=== PATIENT | female | born 1945 | race Caucasian/White ===

== ENCOUNTER 2018-04-05 13:55 | Inpatient (IN) | payer OTHER ==
[~2018-04-05] VITALS: Ht 172.7 cm; Wt 78.0 kg
[~2018-04-05 13:55] MED LIST: AMLO2.5T5 PO; CITA40TA12 PO; HYDR-2765 PO; INSU100C4 SQ; INSU100V13 SQ; POLY17PO28 PO; SENN-22 PO; SIMV20TA3 PO; WARF3TAB54 PO
[2018-04-05] MEDS ORDERED: MORPHINE SULFATE 10 MG/ML VIAL. IM ONE (16:45)
[2018-04-05] MEDS ORDERED: MORPHINE SULFATE 10 MG/ML VIAL. IV ONE (17:00)
[2018-04-05] MEDS ORDERED: VANCOMYCIN PER PHARMACY MC ONE (17:00)
[2018-04-05] MEDS ORDERED: VANCOMYCIN 1.75 GM in IV NORMAL SALINE 500ML BAG 500 ML IV ONE (17:15)
[2018-04-05] MEDS ORDERED: MORPHINE SULFATE 2 MG/ML VIAL. IV PRN (17:15)
[2018-04-05] MEDS ORDERED: ONDANSETRON PF 4 MG/2 ML VIAL. IV PRN ×2 (17:15→18:45)
[2018-04-05] MEDS ORDERED: PIPERACILLIN/TAZOBACTAM 4.5 GM in IV NORMAL SALINE 100ML 100 ML IV ONE (17:15)
[2018-04-05 17:43] LABS: BASO # 0.1 x10^3/uL (0.0-0.2); BASO % 1 % (0-3); EOS # 0.3 x10^3/uL (0.0-0.7); EOS % 5 % (0-3); HEMATOCRIT 28.7 % (36.0-47.0); HEMOGLOBIN 9.4 g/dL (12.0-15.5); LYMPH % 18 % (24-48); MEAN CORPUSCULAR HEMOGLOBIN 29 pg (25-35); MEAN CORPUSCULAR HGB CONC 33 g/dL (31-37); MEAN CORPUSCULAR VOLUME 90 fL (79-100); MONO # 0.5 x10^3/uL (0.0-1.1); MONO % 8 % (0-9); NEUT # 3.9 x10^3uL (1.8-7.7); NEUT % 68 % (31-73); PLATELET COUNT 244 x10^3/uL (140-400); RED CELL DISTRIBUTION WIDTH 12.8 % (11.5-14.5); WHITE BLOOD COUNT 5.7 x10^3/uL (4.0-11.0)
[2018-04-05] MEDS: IV NORMAL SALINE 1000ML BAG 1,000 ML IV SCH ×2 (17:47→18:10)
[2018-04-05 17:50] LABS: CALCIUM 9.4 mg/dL (8.5-10.1); CREATININE 1.3 mg/dL (0.6-1.0); GFR 40.4; POTASSIUM 4.5 mmol/L (3.5-5.1)
[2018-04-05 17:57] LABS: ALBUMIN 3.3 g/dL (3.4-5.0); ALBUMIN/GLOBULIN RATIO 0.8 (1.0-1.7); TOTAL BILIRUBIN 0.5 mg/dL (0.2-1.0); TOTAL PROTEIN 7.6 g/dL (6.4-8.2)
--- NOTE | 2018-04-05 18:43 | PHYS DOC ---
Past Medical History Past Medical History: Diabetes-Type II, High Cholesterol, Hypertension Past Surgical History: Hip Replacement, Other Additional Past Surgical Histo: L. MASTECTOMY, LEFT WRIST 03/2018 Alcohol Use: None Drug Use: None Adult General Chief Complaint Chief Complaint: WOUND CHECK HPI HPI Patient is a 72 year old female with a history of diabetes type 2, hypertension , high cholesterol, who presents to the ED today for evaluation of left wrist infection. Patient states she had open reduction with external fixation on the left wrist done on March 15, [address] Woo, she states she was discharged to a long term. She states she's noted the laceration site has increasingly gotten wider/more open and more red. Patient denies any drainage from the area. She states she is already on cephalexin. Review of Systems Review of Systems Constitutional: Denies fever or chills [] Musculoskeletal: Reports left wrist infection Integument: Denies rash or skin lesions [] Neurologic: Denies headache, focal weakness or sensory changes [] All other systems were reviewed and found to be within normal limits, except as documented in this note. Allergies Allergies Allergies Coded Allergies Type Severity Reaction Last Updated Verified latex Allergy Intermediate 03/17/18 Yes Physical Exam Physical Exam Constitutional: Well developed, well nourished, no acute distress, non-toxic appearance. [] Back: No tenderness, no CVA tenderness. [] Extremities: Left hand/wrist with an open surgical wound, there is external fixator on the surgical wound. There is moderate cellulitis around the wound. There is no drainage from the wound. Patient has full range of motion to the left fingers. +2 left radial pulse. Adequate radial, medial, ulnar sensation to the left hand. Neurologic: Alert and oriented X 3, normal motor function, normal sensory function, no focal deficits noted. [] Psychologic: Affect normal, judgement normal, mood normal. [] Current Patient Data Vital Signs Vital Signs Date Time Temp Pulse Resp B/P (MAP) Pulse Ox O2 Delivery O2 Flow Rate FiO2 04/05/18 16:00 80 16 151/82 (105) 99 Room Air 04/05/18 14:20 97.6 97.6 EKG EKG [] Radiology/Procedures Radiology/Procedures [] Course & Med Decision Making Course & Med Decision Making Pertinent Labs and Imaging studies reviewed. (See chart for details) This is a 72-year-old female patient presenting to the ED today with with left hand/wrist infection. She had open reduction with external fixator on the left hand/wrist done by Dr. Woo on March 15, 2018. She has been on cephalexin, has been in the long term, she states the wound has gotten bigger. Spoke with Dr. Woo who requested we admit patient for IV antibiotics. Spoke with Dr. Clemons who accepted patient for admission. Dragon Disclaimer Dragon Disclaimer This electronic medical record was generated, in whole or in part, using a voice recognition dictation system. Departure Departure Impression: Primary Impression: Infected surgical wound Disposition: ADMITTED INPATIENT Condition: STABLE Referrals: VIVEK WOO MD (PCP) LILIYA MANNING APRN Apr 05, 2018 18:43
[2018-04-05] MEDS ORDERED: MORPHINE SULFATE 4 MG/ML VIAL. IV PRN (18:45)
[2018-04-05 20:10] VITALS: BP 137/66
--- NOTE | 2018-04-05 20:10 | NUR ---
Admission: The patient, ESTEFANÍA HERNANDEZ, 72 y/o, F admitted by LINDA SOLITARIO MD, was given written information regarding hospital policies, unit procedures and contact persons. Patient was transported from ED via bed and head to toe assessment was performed at that time, VSS and patient was afebrile. Orders were received and implemented at that time. Valuables were checked and left with patient in the room.
--- NOTE | 2018-04-05 22:10 | NUR ---
RN paged Dr. Clemons in regards to patients glucose of 199 and to see if home meds could be restarted. Orders were received and implemented at that time. RN will continue to monitor.
[2018-04-05] MEDS ORDERED: HYDROcodone/APAP 7.5/325MG 1 TAB TABLET PO PRN (22:15)
[2018-04-05] MEDS ORDERED: INSULIN GLARGINE 300 UNITS/3 ML INSULN.PEN. SQ SCH (22:30)
[2018-04-05 23:00] VITALS: BP 136/62
--- NOTE | 2018-04-05 23:00 | NUR ---
Patient stated that she has been receiving 25 units of Levemir at night, RN administered 25 units of lantus. RN will continue to monitor.
[2018-04-05] MEDS: SIMVASTATIN 20 MG TABLET PO SCH (23:14)
[2018-04-05] MEDS: CITALOPRAM 20 MG TABLET. PO SCH (23:14)
[2018-04-06] MEDS ORDERED: SENNOSIDES/DOCUSATE 8.6/50MG TABLET. PO PRN (02:45)
[2018-04-06 03:00] VITALS: BP 130/60
[2018-04-06 04:50] LABS: BASO % 1 % (0-3); EOS # 0.2 x10^3/uL (0.0-0.7); EOS % 6 % (0-3); HEMATOCRIT 23.6 % (36.0-47.0); HEMOGLOBIN 7.8 g/dL (12.0-15.5); LYMPH # 0.9 x10^3/uL (1.0-4.8); LYMPH % 23 % (24-48); MEAN CORPUSCULAR HEMOGLOBIN 30 pg (25-35); MEAN CORPUSCULAR HGB CONC 33 g/dL (31-37); MEAN CORPUSCULAR VOLUME 90 fL (79-100); MONO # 0.4 x10^3/uL (0.0-1.1); MONO % 11 % (0-9); NEUT # 2.3 x10^3uL (1.8-7.7); NEUT % 59 % (31-73); PLATELET COUNT 187 x10^3/uL (140-400); RED BLOOD COUNT 2.63 x10^6/uL (3.50-5.40); RED CELL DISTRIBUTION WIDTH 13.2 % (11.5-14.5); WHITE BLOOD COUNT 3.8 x10^3/uL (4.0-11.0)
[2018-04-06 05:06] LABS: PROTHROMBIN TIME PATIENT 14.8 SEC (11.7-14.0)
[2018-04-06 05:15] LABS: ALBUMIN 2.4 g/dL (3.4-5.0); ALBUMIN/GLOBULIN RATIO 0.7 (1.0-1.7); CALCIUM 8.6 mg/dL (8.5-10.1); GFR 54.7; POTASSIUM 4.2 mmol/L (3.5-5.1); TOTAL BILIRUBIN 0.4 mg/dL (0.2-1.0); TOTAL PROTEIN 5.7 g/dL (6.4-8.2)
[2018-04-06 07:00] VITALS: BP 123/48
[2018-04-06] MEDS: glyBURIDE 5 MG TABLET PO SCH ×3 (08:00→16:55)
[2018-04-06] MEDS: INSULIN LISPRO 300 UNITS/3 ML INSULN.PEN. SQ SCH ×6 (08:00→17:11)
[2018-04-06] MEDS ORDERED: DEXTROSE 50% 25 GM / 50ML DISP.SYRIN. IV PRN (09:00)
[2018-04-06] MEDS ORDERED: CEPHALEXIN 250 MG CAPSULE. PO SCH (09:00)
[2018-04-06] MEDS: SENNOSIDES/DOCUSATE 8.6/50MG TABLET. PO SCH (09:00)
[2018-04-06] MEDS ORDERED: POLYETHYLENE GLYCOL 3350 17 GM PACKET. PO PRN (09:00)
[2018-04-06] MEDS: POLYETHYLENE GLYCOL 3350 17 GM PACKET. PO SCH (09:00)
--- NOTE | 2018-04-06 09:03 | PDOC1 ---
History and Physical Date of Admission Date of Admission DATE: 04/06/18 TIME: 08:55 Source Source: Chart review, Patient History of Present Illness History of Present Illness Ms. Jain, is a 72 year old female admit from the ED last night, for evaluation of left wrist infection. Patient states she had open reduction with external fixation on the left wrist done on March 15, [address] Woo, he had some compromise to the hardware last week, and tried to adjust, and started on Keflex, but the area is now more red, swollen and with some exudate. She has been in SNU for hip and wrist pain s/p fall and hip fx. she states the wound had enlarged and is more painful and red Past Medical History Cardiovascular: No pertinent hx Endocrine: Diabetes Past Surgical History Past Surgical History: No pertinent history Family History Family History: Diabetes, Heart Disease, Other Social History Smoke: No ALCOHOL: rare Drugs: None Current Problem List Problem List Problems Medical Problems: (1) Infected surgical wound Status: Acute Current Medications Current Medications Current Medications Morphine Sulfate (Morphine Sulfate) 5 mg 1X ONCE IM ; Start 04/05/18 at 16:45; Stop 04/05/18 at 16:46; Status Cancel Sodium Chloride 1,000 ml @ 1,920 mls/hr Q32M IV Last administered on at 18:10; Start 04/05/18 at 17:15; Stop 04/05/18 at 18:15; Status DC Piperacillin Sod/ Tazobactam Sod 4.5 gm/Sodium Chloride 100 ml @ 200 mls/hr 1X ONCE IV Last administered on 04/05/18at 18:18; Start 04/05/18 at 17:15; Stop 04/05/18 at 17:44; Status DC Vancomycin HCl (Vanco Per Pharmacy) 1 each 1X ONCE MC ; Start 04/05/18 at 17:00 ; Stop 04/05/18 at 17:06; Status DC Morphine Sulfate (Morphine Sulfate) 5 mg 1X ONCE IV Last administered on at 18:12; Start 04/05/18 at 17:00; Stop 04/05/18 at 17:05; Status DC Vancomycin HCl 1.75 gm/Sodium Chloride 500 ml @ 250 mls/hr 1X ONCE IV Last administered on 04/05/18at 19:01; Start 04/05/18 at 17:15; Stop 04/05/18 at 19:14 ; Status DC Ondansetron HCl (Zofran) 4 mg PRN Q8HRS PRN IV NAUSEA/VOMITING Last administered on 04/05/18at 18:11; Start 04/05/18 at 17:15; Stop 04/05/18 at 18:49 ; Status DC Morphine Sulfate (Morphine Sulfate) 2 mg PRN Q2HR PRN IV PAIN; Start 04/05/18 at 17:15; Stop 04/05/18 at 18:49; Status DC Ondansetron HCl (Zofran) 4 mg PRN Q8HRS PRN IV NAUSEA/VOMITING; Start 04/05/18 at 18:45; Stop 04/06/18 at 18:44 Morphine Sulfate (Morphine Sulfate) 4 mg PRN Q2HR PRN IV PAIN Last administered on 04/05/18at 23:25; Start 04/05/18 at 18:45; Stop 04/06/18 at 18:44 Acetaminophen/ Hydrocodone Bitart (Lortab 7.5/325) 1 tab PRN Q4HRS PRN PO PAIN MODERATE TO SEVERE Last administered on 04/06/18at 00:29; Start 04/05/18 at 22:15 ; Stop 04/06/18 at 02:41; Status DC Senna/Docusate Sodium (Senna Plus) 1 tab DAILY PO ; Start 04/06/18 at 09:00 Amlodipine Besylate (Norvasc) 2.5 mg DAILY PO ; Start 04/06/18 at 09:00 Citalopram Hydrobromide (CeleXA) 40 mg QHS PO Last administered on 04/05/18at 23 :14; Start 04/05/18 at 22:30 Insulin Human Lispro (HumaLOG) 10 units TIDWMEALS SQ ; Start 04/06/18 at 08:00 Insulin Glargine (Lantus) 33 units QHS SQ Last administered on 04/05/18at 23:25 ; Start 04/05/18 at 22:30; Stop 04/06/18 at 02:41; Status DC Polyethylene Glycol (miraLAX PACKET) 17 gm PRN DAILY PRN PO CONSTIPATION 1ST CHOICE; Start 04/06/18 at 09:00 Simvastatin (Zocor) 20 mg HS PO Last administered on 04/05/18at 23:14; Start at 22:30 Non-Formulary Medication (Warfarin Sodium (Coumadin)) 3 mg 1X WARF PO ; Start 04/06/18 at 16:00; Status UNV Warfarin Sodium (Coumadin Per Physician) 1 each PRN DAILY PRN MC SEE COMMENTS Last administered on 04/06/18at 05:33; Start 04/05/18 at 22:30 Insulin Glargine (Lantus) 15 units QHS SQ ; Start 04/06/18 at 21:00 Cephalexin HCl (Keflex) 250 mg TID PO ; Start 04/06/18 at 09:00 Cyclobenzaprine HCl (Flexeril) 10 mg PRN Q8HRS PRN PO MUSCLE SPASMS; Start 04/06 at 02:45 Glyburide (Diabeta) 5 mg BIDWMEALS PO ; Start 04/06/18 at 08:00 Polyethylene Glycol (miraLAX PACKET) 17 gm DAILY PO ; Start 04/06/18 at 09:00 Oxycodone HCl (Roxicodone) 15 mg PRN Q3HRS PRN PO SEVERE PAIN; Start 04/06/18 at 02:45 Senna/Docusate Sodium (Senna Plus) 2 tab PRN QHS PRN PO CONSTIPATION 2ND CHOICE ; Start 04/06/18 at 02:45 Lactobacillus Rhamnosus (Culturelle) 1 cap BID PO ; Start 04/06/18 at 09:00 Warfarin Sodium (Coumadin) 3 mg DAILY16 PO ; Start 04/06/18 at 16:00 Active Scripts Active Senna-Time S Tablet (Sennosides/Docusate Sodium) 1 Each Tablet 1 Tab PO DAILY 10 Days Polyethylene Glycol 3350 17 Gm Powd.pack 17 Gm PO PRN DAILY PRN 10 Days Hydrocodone-Apap 7.5-325 (Hydrocodone Bit/Acetaminophen) 1 Tab Tablet 1 Tab PO PRN Q4HRS PRN 14 Days Coumadin (Warfarin Sodium) 3 Mg Tablet 3 Mg PO 1X WARF 10 Days Reported Levemir (Insulin Detemir) 100 Unit/1 Ml Vial 33 Unit SQ HS Novolog (Insulin Aspart) 100 Unit/1 Ml Cartridge 10 Unit SQ TIDWMEALS Amlodipine Besylate 2.5 Mg Tablet 2.5 Mg PO DAILY Celexa (Citalopram Hydrobromide) 40 Mg Tablet 1 Tab PO HS Simvastatin 20 Mg Tablet 1 Tab PO QHS Allergies Allergies: Coded Allergies: latex (Verified Allergy, Intermediate, 03/17/18) ROS General: No: Chills, Night Sweats, Fatigue, Malaise, Appetite, Other PSYCHOLOGICAL ROS: No: Anxiety, Behavioral Disorder, Concentration difficultie , Decreased libido, Depression, Disorientation, Hallucinations, Hostility, Irritablity, Memory difficulties, Mood Swings, Obsessive thoughts, Physical abuse, Sexual abuse, Sleep disturbances, Suicidal ideation, Other Eyes: No Blurry vision, No Decreased vision, No Double vision, No Dry eyes, No Excessive tearing, No Eye Pain, No Itchy Eyes, No Loss of vision, No Photophobia , No Scotomata, No Uses contacts, No Uses glasses, No Other HEENT: No: Heacaches, Visual Changes, Hearing change, Nasal congestion, Nasal discharge, Oral lesions, Sinus pain, Sore Throat, Epistaxis, Sneezing, Snoring, Tinnitus, Vertigo, Vocal changes, Other Respiratory: No: Cough, Hemoptysis, Orthopnea, Pleuritic Pain, Shortness of breath, SOB with excertion, Sputum Changes, Stridor, Tachypnea, Wheezing, Other Cardiovascular: No Chest Pain, No Palpitations, No Orthopnea, No Paroxysmal Noc. Dyspnea, No Edema, No Lt Headedness, No Other Gastrointestinal: No Nausea, No Vomiting, No Abdominal Pain, No Diarrhea, No Constipation, No Melena, No Hematochezia, No Other Genitourinary: No Dysuria, No Frequency, No Incontinence, No Hematuria, No Retention, No Discharge, No Urgency, No Pain, No Flank Pain, No Other, No , No , No , No , No , No , No Musculoskeletal: Yes Gait Disturbance, Yes Joint Pain, Yes Joint Stiffness, Yes Joint Swelling Neurological: Yes Gait Disturbance; No Behavorial Changes, No Bowel/Bladder ControlChng, No Confusion, No Dizziness, No Headaches, No Impaired Coord/balance, No Memory Loss, No Numbness/ Tingling, No Seizures, No Speech Problems, No Tremors, No Visual Changes, No Weakness, No Other Skin: No Dry Skin, No Eczema, No Hair Changes, No Lumps, No Mole Changes, No Mottling, No Nail Changes, No Pruritus, No Rash, No Skin Lesion Changes, No Other, No Acne Physical Exam General: Alert, Cooperative, No acute distress Abdomen: Normal bowel sounds, Soft Rectal Exam: not examined Extremities: No cyanosis, Other (left hand open wound with hardward visualized and exudate, ) Skin: No rashes Neuro: Normal gait, Normal tone Vitals Vitals Vital Signs Date Time Temp Pulse Resp B/P (MAP) Pulse Ox O2 Delivery O2 Flow Rate FiO2 04/06/18 07:20 Room Air 04/06/18 03:00 97.8 83 18 130/60 (83) 91 97.8 Labs Labs Laboratory Tests Test 04/05/18 17:25 04/05/18 20:30 04/05/18 22:00 04/05/18 23:22 White Blood Count 5.7 x10^3/uL (4.0-11.0) Red Blood Count 3.20 x10^6/uL (3.50-5.40) Hemoglobin 9.4 g/dL (12.0-15.5) Hematocrit 28.7 % (36.0-47.0) Mean Corpuscular Volume 90 fL (79-100) Mean Corpuscular Hemoglobin 29 pg (25-35) Mean Corpuscular Hemoglobin Concent 33 g/dL (31-37) Red Cell Distribution Width 12.8 % (11.5-14.5) Platelet Count 244 x10^3/uL (140-400) Neutrophils (%) (Auto) 68 % (31-73) Lymphocytes (%) (Auto) 18 % (24-48) Monocytes (%) (Auto) 8 % (0-9) Eosinophils (%) (Auto) 5 % (0-3) Basophils (%) (Auto) 1 % (0-3) Neutrophils # (Auto) 3.9 x10^3uL (1.8-7.7) Lymphocytes # (Auto) 1.0 x10^3/uL (1.0-4.8) Monocytes # (Auto) 0.5 x10^3/uL (0.0-1.1) Eosinophils # (Auto) 0.3 x10^3/uL (0.0-0.7) Basophils # (Auto) 0.1 x10^3/uL (0.0-0.2) Sodium Level 136 mmol/L (136-145) Potassium Level 4.5 mmol/L (3.5-5.1) Chloride Level 97 mmol/L (98-107) Carbon Dioxide Level 30 mmol/L (21-32) Anion Gap 9 (6-14) Blood Urea Nitrogen 25 mg/dL (7-20) Creatinine 1.3 mg/dL (0.6-1.0) Estimated GFR (Cockcroft-Gault) 40.4 BUN/Creatinine Ratio 19 (6-20) Glucose Level 282 mg/dL (70-99) Lactic Acid Level 1.1 mmol/L (0.4-2.0) 0.7 mmol/L (0.4-2.0) Calcium Level 9.4 mg/dL (8.5-10.1) Total Bilirubin 0.5 mg/dL (0.2-1.0) Aspartate Amino Transf (AST/SGOT) 17 U/L (15-37) Alanine Aminotransferase (ALT/SGPT) 16 U/L (14-59) Alkaline Phosphatase 161 U/L (46-116) Total Protein 7.6 g/dL (6.4-8.2) Albumin 3.3 g/dL (3.4-5.0) Albumin/Globulin Ratio 0.8 (1.0-1.7) Procalcitonin < 0.10 ng/mL (0.00-0.10) Glucose (Fingerstick) 199 mg/dL (70-99) 312 mg/dL (70-99) Test 04/06/18 04:10 White Blood Count 3.8 x10^3/uL (4.0-11.0) Red Blood Count 2.63 x10^6/uL (3.50-5.40) Hemoglobin 7.8 g/dL (12.0-15.5) Hematocrit 23.6 % (36.0-47.0) Mean Corpuscular Volume 90 fL (79-100) Mean Corpuscular Hemoglobin 30 pg (25-35) Mean Corpuscular Hemoglobin Concent 33 g/dL (31-37) Red Cell Distribution Width 13.2 % (11.5-14.5) Platelet Count 187 x10^3/uL (140-400) Neutrophils (%) (Auto) 59 % (31-73) Lymphocytes (%) (Auto) 23 % (24-48) Monocytes (%) (Auto) 11 % (0-9) Eosinophils (%) (Auto) 6 % (0-3) Basophils (%) (Auto) 1 % (0-3) Neutrophils # (Auto) 2.3 x10^3uL (1.8-7.7) Lymphocytes # (Auto) 0.9 x10^3/uL (1.0-4.8) Monocytes # (Auto) 0.4 x10^3/uL (0.0-1.1) Eosinophils # (Auto) 0.2 x10^3/uL (0.0-0.7) Basophils # (Auto) 0.0 x10^3/uL (0.0-0.2) Prothrombin Time 14.8 SEC (11.7-14.0) Prothromb Time International Ratio 1.2 (0.8-1.1) Sodium Level 142 mmol/L (136-145) Potassium Level 4.2 mmol/L (3.5-5.1) Chloride Level 105 mmol/L (98-107) Carbon Dioxide Level 30 mmol/L (21-32) Anion Gap 7 (6-14) Blood Urea Nitrogen 20 mg/dL (7-20) Creatinine 1.0 mg/dL (0.6-1.0) Estimated GFR (Cockcroft-Gault) 54.7 BUN/Creatinine Ratio 20 (6-20) Glucose Level 196 mg/dL (70-99) Calcium Level 8.6 mg/dL (8.5-10.1) Total Bilirubin 0.4 mg/dL (0.2-1.0) Aspartate Amino Transf (AST/SGOT) 13 U/L (15-37) Alanine Aminotransferase (ALT/SGPT) 11 U/L (14-59) Alkaline Phosphatase 118 U/L (46-116) Total Protein 5.7 g/dL (6.4-8.2) Albumin 2.4 g/dL (3.4-5.0) Albumin/Globulin Ratio 0.7 (1.0-1.7) Laboratory Tests Test 04/05/18 17:25 04/05/18 20:30 04/05/18 22:00 04/05/18 23:22 White Blood Count 5.7 x10^3/uL (4.0-11.0) Red Blood Count 3.20 x10^6/uL (3.50-5.40) Hemoglobin 9.4 g/dL (12.0-15.5) Hematocrit 28.7 % (36.0-47.0) Mean Corpuscular Volume 90 fL (79-100) Mean Corpuscular Hemoglobin 29 pg (25-35) Mean Corpuscular Hemoglobin Concent 33 g/dL (31-37) Red Cell Distribution Width 12.8 % (11.5-14.5) Platelet Count 244 x10^3/uL (140-400) Neutrophils (%) (Auto) 68 % (31-73) Lymphocytes (%) (Auto) 18 % (24-48) Monocytes (%) (Auto) 8 % (0-9) Eosinophils (%) (Auto) 5 % (0-3) Basophils (%) (Auto) 1 % (0-3) Neutrophils # (Auto) 3.9 x10^3uL (1.8-7.7) Lymphocytes # (Auto) 1.0 x10^3/uL (1.0-4.8) Monocytes # (Auto) 0.5 x10^3/uL (0.0-1.1) Eosinophils # (Auto) 0.3 x10^3/uL (0.0-0.7) Basophils # (Auto) 0.1 x10^3/uL (0.0-0.2) Sodium Level 136 mmol/L (136-145) Potassium Level 4.5 mmol/L (3.5-5.1) Chloride Level 97 mmol/L (98-107) Carbon Dioxide Level 30 mmol/L (21-32) Anion Gap 9 (6-14) Blood Urea Nitrogen 25 mg/dL (7-20) Creatinine 1.3 mg/dL (0.6-1.0) Estimated GFR (Cockcroft-Gault) 40.4 BUN/Creatinine Ratio 19 (6-20) Glucose Level 282 mg/dL (70-99) Lactic Acid Level 1.1 mmol/L (0.4-2.0) 0.7 mmol/L (0.4-2.0) Calcium Level 9.4 mg/dL (8.5-10.1) Total Bilirubin 0.5 mg/dL (0.2-1.0) Aspartate Amino Transf (AST/SGOT) 17 U/L (15-37) Alanine Aminotransferase (ALT/SGPT) 16 U/L (14-59) Alkaline Phosphatase 161 U/L (46-116) Total Protein 7.6 g/dL (6.4-8.2) Albumin 3.3 g/dL (3.4-5.0) Albumin/Globulin Ratio 0.8 (1.0-1.7) Procalcitonin < 0.10 ng/mL (0.00-0.10) Glucose (Fingerstick) 199 mg/dL (70-99) 312 mg/dL (70-99) Test 04/06/18 04:10 White Blood Count 3.8 x10^3/uL (4.0-11.0) Red Blood Count 2.63 x10^6/uL (3.50-5.40) Hemoglobin 7.8 g/dL (12.0-15.5) Hematocrit 23.6 % (36.0-47.0) Mean Corpuscular Volume 90 fL (79-100) Mean Corpuscular Hemoglobin 30 pg (25-35) Mean Corpuscular Hemoglobin Concent 33 g/dL (31-37) Red Cell Distribution Width 13.2 % (11.5-14.5) Platelet Count 187 x10^3/uL (140-400) Neutrophils (%) (Auto) 59 % (31-73) Lymphocytes (%) (Auto) 23 % (24-48) Monocytes (%) (Auto) 11 % (0-9) Eosinophils (%) (Auto) 6 % (0-3) Basophils (%) (Auto) 1 % (0-3) Neutrophils # (Auto) 2.3 x10^3uL (1.8-7.7) Lymphocytes # (Auto) 0.9 x10^3/uL (1.0-4.8) Monocytes # (Auto) 0.4 x10^3/uL (0.0-1.1) Eosinophils # (Auto) 0.2 x10^3/uL (0.0-0.7) Basophils # (Auto) 0.0 x10^3/uL (0.0-0.2) Prothrombin Time 14.8 SEC (11.7-14.0) Prothromb Time International Ratio 1.2 (0.8-1.1) Sodium Level 142 mmol/L (136-145) Potassium Level 4.2 mmol/L (3.5-5.1) Chloride Level 105 mmol/L (98-107) Carbon Dioxide Level 30 mmol/L (21-32) Anion Gap 7 (6-14) Blood Urea Nitrogen 20 mg/dL (7-20) Creatinine 1.0 mg/dL (0.6-1.0) Estimated GFR (Cockcroft-Gault) 54.7 BUN/Creatinine Ratio 20 (6-20) Glucose Level 196 mg/dL (70-99) Calcium Level 8.6 mg/dL (8.5-10.1) Total Bilirubin 0.4 mg/dL (0.2-1.0) Aspartate Amino Transf (AST/SGOT) 13 U/L (15-37) Alanine Aminotransferase (ALT/SGPT) 11 U/L (14-59) Alkaline Phosphatase 118 U/L (46-116) Total Protein 5.7 g/dL (6.4-8.2) Albumin 2.4 g/dL (3.4-5.0) Albumin/Globulin Ratio 0.7 (1.0-1.7) VTE Prophylaxis Ordered VTE Prophylaxis Devices: Yes VTE Pharmacological Prophylaxi: Yes Assessment/Plan Assessment/Plan left hand fracture with ORIF and hardware, now left hand swelling and redness and pain with exudate. cellulitis, consult Ortho s/p surg 03/15, DM2, insulin, add SSI, check a1c hip pain, recent hip fracture from falling on ice in driveway while retrieving garbage EBENEZER Betancourt MD Apr 06, 2018 09:03
--- NOTE | 2018-04-06 09:49 | PDOC ---
Infectious Disease Note Vital Sign Vital Signs Vital Signs Date Time Temp Pulse Resp B/P (MAP) Pulse Ox O2 Delivery O2 Flow Rate FiO2 04/06/18 07:20 Room Air 04/06/18 03:00 97.8 83 18 130/60 (83) 91 97.8 Labs Lab Laboratory Tests Test 04/05/18 17:25 04/05/18 20:30 04/05/18 22:00 04/05/18 23:22 White Blood Count 5.7 x10^3/uL (4.0-11.0) Red Blood Count 3.20 x10^6/uL (3.50-5.40) Hemoglobin 9.4 g/dL (12.0-15.5) Hematocrit 28.7 % (36.0-47.0) Mean Corpuscular Volume 90 fL (79-100) Mean Corpuscular Hemoglobin 29 pg (25-35) Mean Corpuscular Hemoglobin Concent 33 g/dL (31-37) Red Cell Distribution Width 12.8 % (11.5-14.5) Platelet Count 244 x10^3/uL (140-400) Neutrophils (%) (Auto) 68 % (31-73) Lymphocytes (%) (Auto) 18 % (24-48) Monocytes (%) (Auto) 8 % (0-9) Eosinophils (%) (Auto) 5 % (0-3) Basophils (%) (Auto) 1 % (0-3) Neutrophils # (Auto) 3.9 x10^3uL (1.8-7.7) Lymphocytes # (Auto) 1.0 x10^3/uL (1.0-4.8) Monocytes # (Auto) 0.5 x10^3/uL (0.0-1.1) Eosinophils # (Auto) 0.3 x10^3/uL (0.0-0.7) Basophils # (Auto) 0.1 x10^3/uL (0.0-0.2) Sodium Level 136 mmol/L (136-145) Potassium Level 4.5 mmol/L (3.5-5.1) Chloride Level 97 mmol/L (98-107) Carbon Dioxide Level 30 mmol/L (21-32) Anion Gap 9 (6-14) Blood Urea Nitrogen 25 mg/dL (7-20) Creatinine 1.3 mg/dL (0.6-1.0) Estimated GFR (Cockcroft-Gault) 40.4 BUN/Creatinine Ratio 19 (6-20) Glucose Level 282 mg/dL (70-99) Lactic Acid Level 1.1 mmol/L (0.4-2.0) 0.7 mmol/L (0.4-2.0) Calcium Level 9.4 mg/dL (8.5-10.1) Total Bilirubin 0.5 mg/dL (0.2-1.0) Aspartate Amino Transf (AST/SGOT) 17 U/L (15-37) Alanine Aminotransferase (ALT/SGPT) 16 U/L (14-59) Alkaline Phosphatase 161 U/L (46-116) Total Protein 7.6 g/dL (6.4-8.2) Albumin 3.3 g/dL (3.4-5.0) Albumin/Globulin Ratio 0.8 (1.0-1.7) Procalcitonin < 0.10 ng/mL (0.00-0.10) Glucose (Fingerstick) 199 mg/dL (70-99) 312 mg/dL (70-99) Test 04/06/18 04:10 04/06/18 07:56 White Blood Count 3.8 x10^3/uL (4.0-11.0) Red Blood Count 2.63 x10^6/uL (3.50-5.40) Hemoglobin 7.8 g/dL (12.0-15.5) Hematocrit 23.6 % (36.0-47.0) Mean Corpuscular Volume 90 fL (79-100) Mean Corpuscular Hemoglobin 30 pg (25-35) Mean Corpuscular Hemoglobin Concent 33 g/dL (31-37) Red Cell Distribution Width 13.2 % (11.5-14.5) Platelet Count 187 x10^3/uL (140-400) Neutrophils (%) (Auto) 59 % (31-73) Lymphocytes (%) (Auto) 23 % (24-48) Monocytes (%) (Auto) 11 % (0-9) Eosinophils (%) (Auto) 6 % (0-3) Basophils (%) (Auto) 1 % (0-3) Neutrophils # (Auto) 2.3 x10^3uL (1.8-7.7) Lymphocytes # (Auto) 0.9 x10^3/uL (1.0-4.8) Monocytes # (Auto) 0.4 x10^3/uL (0.0-1.1) Eosinophils # (Auto) 0.2 x10^3/uL (0.0-0.7) Basophils # (Auto) 0.0 x10^3/uL (0.0-0.2) Prothrombin Time 14.8 SEC (11.7-14.0) Prothromb Time International Ratio 1.2 (0.8-1.1) Sodium Level 142 mmol/L (136-145) Potassium Level 4.2 mmol/L (3.5-5.1) Chloride Level 105 mmol/L (98-107) Carbon Dioxide Level 30 mmol/L (21-32) Anion Gap 7 (6-14) Blood Urea Nitrogen 20 mg/dL (7-20) Creatinine 1.0 mg/dL (0.6-1.0) Estimated GFR (Cockcroft-Gault) 54.7 BUN/Creatinine Ratio 20 (6-20) Glucose Level 196 mg/dL (70-99) Calcium Level 8.6 mg/dL (8.5-10.1) Total Bilirubin 0.4 mg/dL (0.2-1.0) Aspartate Amino Transf (AST/SGOT) 13 U/L (15-37) Alanine Aminotransferase (ALT/SGPT) 11 U/L (14-59) Alkaline Phosphatase 118 U/L (46-116) Total Protein 5.7 g/dL (6.4-8.2) Albumin 2.4 g/dL (3.4-5.0) Albumin/Globulin Ratio 0.7 (1.0-1.7) Glucose (Fingerstick) 109 mg/dL (70-99) Objective Assessment Left wrist infection Left wrist ORIF on 03/15 Left hip ORIF/Hemiarthroplasty on 03/15 DM Plan Plan of Care robyn and elan culture supportive care d/w MARILYN Russ MD Apr 06, 2018 09:49
[2018-04-06] MEDS: LACTOBACILLUS RHAMNOSUS GG 1 CAPSULE. PO SCH ×2 (10:07→20:53)
[2018-04-06] MEDS: PIPERACILLIN/TAZOBACTAM 3.375 GM in IV NORMAL SALINE 50ML 50 ML IV SCH ×3 (10:09→23:45)
[2018-04-06] MEDS: amLODIPine BESYLATE 5 MG TABLET PO SCH (10:09)
--- NOTE | 2018-04-06 10:23 | NUR ---
COURTNEY following for discharge planning. Discussed with RN, pt had been at [facility] and was supposed to discharge home from SNU in one day. Per RN, pt does not want to go back to skilled, she would like to go home. Dr. Reynolds planning on discharging pt likely on Monday with IV antibiotics. COURTNEY will continue to follow when abx has been determined.
[2018-04-06 11:00] VITALS: BP 129/55
[2018-04-06] MEDS: VANCOMYCIN 1.25 GM in IV NORMAL SALINE 250ML 250 ML IV SCH (12:23)
--- NOTE | 2018-04-06 13:04 | NUR ---
Pharmacy Warfarin Dosing Note S:Pharmacy consulted to assist with anticoagulation therapy started 03/15/18 with target INR: 1.6 - 2.5 O:ESTEFANÍA HERNANDEZ is a 72 year old F with femur fracture, s/p repair 03/15/18 LABS: Last INR: 1.2 Last HGB: 7.8 Last HCT: 23.6 Last PLT: 187 Previous Regimen: 3 mg/day Drug Interaction Changes: New Interacting Drug Ongoing Drug Interactions: Zosyn A:INR of 1.2 is below desired range. Target range for this patient is: 1.6 - 2.5 P: Warfarin dose: 4 mg Today at 1600 Bridge Therapy: None Next INR due 04/07/18 Pharmacy anticoagulation service will continue to follow. JAY LLAMAS [facility], 04/06/18 [id number]
[2018-04-06] MEDS: VANCOMYCIN PER PHARMACY MC PRN (13:11)
--- NOTE | 2018-04-06 13:11 | NUR ---
Pharmacy Vancomycin Dosing Note S:Consulted to monitor and dose vancomycin started 04/05/18. O:ESTEFANÍA HERNANDEZ is a 72 year old F with a post-op wound infection. Height: 5 feet, 8 inches Weight: 78.5 kg Dosing Weight: Actual Other Antibiotics: ZOSYN 3.375G IV Q6HRS LABS: Last BUN: 20 Last Creatinine: 1.0 Creatinine Clearance: 56 mL/min Last WBC: 3.8 Last Procalcitonin: - Tmax (past 24 hours): 98.5 Microbiology: BLOOD AND WOUND CX PENDING I/O: not documented A: Patient requires vancomycin for a post-op wound infection, goal trough 10-20 mcg/ml. Patient's SCr of 1.0 is improved from baseline value; eCrCl is 56 ml/min. She received vancomycin 1750 mg x 1 dose in ER yesterday. Initiate the following: P: 1. Vancomycin 1250 mg IV q18h 2. Follow up Trough level on 04/07/18 at 0630 3. Pharmacy will continue to monitor, follow and adjust therapy as needed. JAY LLAMAS [facility], 04/06/18 [id number]
--- NOTE | 2018-04-06 14:13 | NUR ---
Wound Care Wound care consult for open incision of L wrist with exposed hardware. See wound assessment. Cleansed, pictured and measured wound. Dressed with Aquacel Ag, ABD and Kerlix. Recommend to change every 2-3 days as needed for drainage. L hip incision is well approximated with no drainage and Xeroform and Telfa dressing intact. No other wounds noted with full skin inspection. Pt educated on PU prevention. WC will continue to follow for possible changes.
[2018-04-06] MEDS: oxyCODONE IR 5 MG TABLET PO PRN (14:36)
[2018-04-06 15:00] VITALS: BP 124/67
[2018-04-06] MEDS ORDERED: WARFARIN 4 MG TABLET. PO ONE (16:00)
[2018-04-06] MEDS ORDERED: WARFARIN 3 MG TABLET. PO SCH (16:00)
[2018-04-06] MEDS ORDERED: WARFARIN SODIUM 3 MG PO SCH (16:00)
[2018-04-06] MEDS: MULTIVITAMIN with MINERAL TABLET. PO SCH (16:55)
--- NOTE | 2018-04-06 18:39 | PDOC ---
PROGRESS NOTES Subjective Subjective Problems overnight: Left wrist wound and left hip soreness Objective Vital Signs Vital Signs Date Time Temp Pulse Resp B/P (MAP) Pulse Ox O2 Delivery O2 Flow Rate FiO2 04/06/18 15:52 Room Air 04/06/18 15:00 98.5 85 16 124/67 (86) 99 98.5 Physical Exam On examination left hip wound is well-healing leg lengths are equal distal neurovascular status intact she has some muscular soreness and weakness as expected. Left wrist shows some skin compromise where one of her percutaneous pins had become impacted at her rehabilitation facility and compromised the skin where the protective ball got driven into the skin and caused a skin defect. Wrist is somewhat stiff as expected due to her fracture she can flex and extend her fingers with minimal difficulty Labs Laboratory Tests Test 04/05/18 17:25 04/05/18 20:30 04/05/18 22:00 04/05/18 23:22 White Blood Count 5.7 x10^3/uL (4.0-11.0) Red Blood Count 3.20 x10^6/uL (3.50-5.40) Hemoglobin 9.4 g/dL (12.0-15.5) Hematocrit 28.7 % (36.0-47.0) Mean Corpuscular Volume 90 fL (79-100) Mean Corpuscular Hemoglobin 29 pg (25-35) Mean Corpuscular Hemoglobin Concent 33 g/dL (31-37) Red Cell Distribution Width 12.8 % (11.5-14.5) Platelet Count 244 x10^3/uL (140-400) Neutrophils (%) (Auto) 68 % (31-73) Lymphocytes (%) (Auto) 18 % (24-48) Monocytes (%) (Auto) 8 % (0-9) Eosinophils (%) (Auto) 5 % (0-3) Basophils (%) (Auto) 1 % (0-3) Neutrophils # (Auto) 3.9 x10^3uL (1.8-7.7) Lymphocytes # (Auto) 1.0 x10^3/uL (1.0-4.8) Monocytes # (Auto) 0.5 x10^3/uL (0.0-1.1) Eosinophils # (Auto) 0.3 x10^3/uL (0.0-0.7) Basophils # (Auto) 0.1 x10^3/uL (0.0-0.2) Sodium Level 136 mmol/L (136-145) Potassium Level 4.5 mmol/L (3.5-5.1) Chloride Level 97 mmol/L (98-107) Carbon Dioxide Level 30 mmol/L (21-32) Anion Gap 9 (6-14) Blood Urea Nitrogen 25 mg/dL (7-20) Creatinine 1.3 mg/dL (0.6-1.0) Estimated GFR (Cockcroft-Gault) 40.4 BUN/Creatinine Ratio 19 (6-20) Glucose Level 282 mg/dL (70-99) Lactic Acid Level 1.1 mmol/L (0.4-2.0) 0.7 mmol/L (0.4-2.0) Calcium Level 9.4 mg/dL (8.5-10.1) Total Bilirubin 0.5 mg/dL (0.2-1.0) Aspartate Amino Transf (AST/SGOT) 17 U/L (15-37) Alanine Aminotransferase (ALT/SGPT) 16 U/L (14-59) Alkaline Phosphatase 161 U/L (46-116) Total Protein 7.6 g/dL (6.4-8.2) Albumin 3.3 g/dL (3.4-5.0) Albumin/Globulin Ratio 0.8 (1.0-1.7) Procalcitonin < 0.10 ng/mL (0.00-0.10) Glucose (Fingerstick) 199 mg/dL (70-99) 312 mg/dL (70-99) Test 04/06/18 04:10 04/06/18 07:56 04/06/18 11:55 04/06/18 16:59 White Blood Count 3.8 x10^3/uL (4.0-11.0) Red Blood Count 2.63 x10^6/uL (3.50-5.40) Hemoglobin 7.8 g/dL (12.0-15.5) Hematocrit 23.6 % (36.0-47.0) Mean Corpuscular Volume 90 fL (79-100) Mean Corpuscular Hemoglobin 30 pg (25-35) Mean Corpuscular Hemoglobin Concent 33 g/dL (31-37) Red Cell Distribution Width 13.2 % (11.5-14.5) Platelet Count 187 x10^3/uL (140-400) Neutrophils (%) (Auto) 59 % (31-73) Lymphocytes (%) (Auto) 23 % (24-48) Monocytes (%) (Auto) 11 % (0-9) Eosinophils (%) (Auto) 6 % (0-3) Basophils (%) (Auto) 1 % (0-3) Neutrophils # (Auto) 2.3 x10^3uL (1.8-7.7) Lymphocytes # (Auto) 0.9 x10^3/uL (1.0-4.8) Monocytes # (Auto) 0.4 x10^3/uL (0.0-1.1) Eosinophils # (Auto) 0.2 x10^3/uL (0.0-0.7) Basophils # (Auto) 0.0 x10^3/uL (0.0-0.2) Prothrombin Time 14.8 SEC (11.7-14.0) Prothromb Time International Ratio 1.2 (0.8-1.1) Sodium Level 142 mmol/L (136-145) Potassium Level 4.2 mmol/L (3.5-5.1) Chloride Level 105 mmol/L (98-107) Carbon Dioxide Level 30 mmol/L (21-32) Anion Gap 7 (6-14) Blood Urea Nitrogen 20 mg/dL (7-20) Creatinine 1.0 mg/dL (0.6-1.0) Estimated GFR (Cockcroft-Gault) 54.7 BUN/Creatinine Ratio 20 (6-20) Glucose Level 196 mg/dL (70-99) Calcium Level 8.6 mg/dL (8.5-10.1) Total Bilirubin 0.4 mg/dL (0.2-1.0) Aspartate Amino Transf (AST/SGOT) 13 U/L (15-37) Alanine Aminotransferase (ALT/SGPT) 11 U/L (14-59) Alkaline Phosphatase 118 U/L (46-116) Total Protein 5.7 g/dL (6.4-8.2) Albumin 2.4 g/dL (3.4-5.0) Albumin/Globulin Ratio 0.7 (1.0-1.7) Glucose (Fingerstick) 109 mg/dL (70-99) 118 mg/dL (70-99) 200 mg/dL (70-99) Laboratory Tests Test 04/05/18 20:30 04/05/18 22:00 04/05/18 23:22 04/06/18 04:10 Glucose (Fingerstick) 199 mg/dL (70-99) 312 mg/dL (70-99) Lactic Acid Level 0.7 mmol/L (0.4-2.0) White Blood Count 3.8 x10^3/uL (4.0-11.0) Red Blood Count 2.63 x10^6/uL (3.50-5.40) Hemoglobin 7.8 g/dL (12.0-15.5) Hematocrit 23.6 % (36.0-47.0) Mean Corpuscular Volume 90 fL (79-100) Mean Corpuscular Hemoglobin 30 pg (25-35) Mean Corpuscular Hemoglobin Concent 33 g/dL (31-37) Red Cell Distribution Width 13.2 % (11.5-14.5) Platelet Count 187 x10^3/uL (140-400) Neutrophils (%) (Auto) 59 % (31-73) Lymphocytes (%) (Auto) 23 % (24-48) Monocytes (%) (Auto) 11 % (0-9) Eosinophils (%) (Auto) 6 % (0-3) Basophils (%) (Auto) 1 % (0-3) Neutrophils # (Auto) 2.3 x10^3uL (1.8-7.7) Lymphocytes # (Auto) 0.9 x10^3/uL (1.0-4.8) Monocytes # (Auto) 0.4 x10^3/uL (0.0-1.1) Eosinophils # (Auto) 0.2 x10^3/uL (0.0-0.7) Basophils # (Auto) 0.0 x10^3/uL (0.0-0.2) Prothrombin Time 14.8 SEC (11.7-14.0) Prothromb Time International Ratio 1.2 (0.8-1.1) Sodium Level 142 mmol/L (136-145) Potassium Level 4.2 mmol/L (3.5-5.1) Chloride Level 105 mmol/L (98-107) Carbon Dioxide Level 30 mmol/L (21-32) Anion Gap 7 (6-14) Blood Urea Nitrogen 20 mg/dL (7-20) Creatinine 1.0 mg/dL (0.6-1.0) Estimated GFR (Cockcroft-Gault) 54.7 BUN/Creatinine Ratio 20 (6-20) Glucose Level 196 mg/dL (70-99) Calcium Level 8.6 mg/dL (8.5-10.1) Total Bilirubin 0.4 mg/dL (0.2-1.0) Aspartate Amino Transf (AST/SGOT) 13 U/L (15-37) Alanine Aminotransferase (ALT/SGPT) 11 U/L (14-59) Alkaline Phosphatase 118 U/L (46-116) Total Protein 5.7 g/dL (6.4-8.2) Albumin 2.4 g/dL (3.4-5.0) Albumin/Globulin Ratio 0.7 (1.0-1.7) Test 04/06/18 07:56 04/06/18 11:55 04/06/18 16:59 Glucose (Fingerstick) 109 mg/dL (70-99) 118 mg/dL (70-99) 200 mg/dL (70-99) Assessment Assessment History of left hip fracture treated operatively and closed reduction pinning of her left wrist Plan Plan of Care I had actually seen her last week in clinic due to some complaints of increased wrist pain. At that time one of her percutaneous pins had been somehow driven into her skin and the protective ball to limit the movement of the pin had pushed into the skin and compromise the area. This was redressed at the time dressing changes were done at the facility and she was started on some oral antibiotics. Nevertheless on her presentation to the emergency department the redness of the area was increased despite the wound not becoming larger. Accordingly she was admitted for intravenous antibiotics. At this point I do not judged that operative intervention needs to be instituted as she seems to be responding to the antibiotics. Furthermore removal of the pins would be premature and her only alternative really would be being placed in a cast that would have to be windowed to allow access for wound care. I think at this point the presence as positioned are a better alternative to facilitate stabilization of her healing wrist fracture as well as wound care. She will remain nonweightbearing on the wrist with a platform walker to allow weightbearing on her forearm to facilitate her continued left hip rehabilitation VIVEK CARTER MD Apr 06, 2018 18:39
[2018-04-06 19:00] VITALS: BP 136/62
[2018-04-06] MEDS: CITALOPRAM 20 MG TABLET. PO SCH (20:53)
[2018-04-06] MEDS: SIMVASTATIN 20 MG TABLET PO SCH (20:53)
[2018-04-06] MEDS: INSULIN GLARGINE 300 UNITS/3 ML INSULN.PEN. SQ SCH (21:08)
[2018-04-06 23:00] VITALS: BP 155/66
[2018-04-07] MEDS: oxyCODONE IR 5 MG TABLET PO PRN ×3 (00:48→17:07)
--- NOTE | 2018-04-07 00:52 | CONS ---
DATE OF CONSULTATION: 04/06/2018 REQUESTING PHYSICIAN: Dr. Ybarra. REASON FOR CONSULTATION: Left wrist infection. HISTORY OF PRESENT ILLNESS: This is a 72-year-old female with history of diabetes who has had a fall and had a surgery done on 03/15/2018 with left hip fracture hemiarthroplasty and left wrist fracture pinning done. The patient does have 2 pins at least visible into the wrist and the patient was in the rehabilitation. Evidently, the area started becoming red and has slight drainage and pin got pushed further in, hence her admission. The patient denies any fever. Denies any nausea, vomiting, diarrhea. Denies any chest pain, shortness of breath, abdominal pain, urinary symptoms or bowel symptoms. The patient had been on Keflex for several days now. PAST MEDICAL HISTORY: Positive for diabetes mellitus and has had ankle fracture in the past and now this recent hip fracture after a fall and wrist fracture, which has had ORIF done on 03/15/2018. SOCIAL HISTORY: Negative for smoking, alcohol, or illicit drug use. ALLERGIES: No known drug allergies. CURRENT MEDICATIONS: The patient is on Keflex and one dose of vancomycin and one dose of Zosyn has been given. REVIEW OF SYSTEMS: As per HPI. All other systems reviewed are negative. PHYSICAL EXAMINATION: GENERAL: Alert, oriented female, not in any distress. VITAL SIGNS: Stable, afebrile. HEENT: NAD. NECK: Supple, no JVP, no lymphadenopathy. LUNGS: Clear. HEART: S1, S2 regular. ABDOMEN: Benign. EXTREMITIES: No edema or cyanosis. Left hip incision is unremarkable. Left wrist area has 2 pins visible going into the bone and there is redness in the surrounding area as well as there is very small amount of purulent drainage visible. Culture of that was done by the time I saw the patient with the nurse. NEUROLOGICAL: The patient is neurologically alert, awake and appropriate. No focal neurologic deficit. LABORATORY DATA: White count is 3.8, hemoglobin 7.8, platelets are normal. BUN and creatinine is normal. Lactic acid is normal. Urinalysis unremarkable. IMPRESSION: 1. Left wrist post-surgical infection with the 2 pins visible going into the bone. 2. Left wrist fracture, status post open reduction and internal fixation on 03/15/2018. At the same time, on the left hip, fracture status post open reduction and internal fixation with hemiarthroplasty done on 03/15/2018. 3. Diabetes. RECOMMENDATIONS: Would write down for regular doses of vancomycin and Zosyn, supportive care, cultures. We will follow the cultures and I did discuss with Dr. Woo. Plan is to give IV for some time to control this and hopefully in a week or two that he should be able to take out the pin. Supportive care and we will continue to follow this. Thank you very much, Dr. Ybarra, for giving me the opportunity to participate in this patient's care. MARILYN MOMIN MD DR: DIGNA/anuja JOB#: [id number] / [id number]
--- NOTE | 2018-04-07 01:40 | NUR ---
RN changed the dressing on the site from left hip fracture and repair. RN applied xeroform medicated gauze, gauze pads, and medipore tape. Patient stated that the nursing facility changes the dressing every other day.
[2018-04-07 03:00] VITALS: BP 143/65
[2018-04-07] MEDS: PIPERACILLIN/TAZOBACTAM 3.375 GM in IV NORMAL SALINE 50ML 50 ML IV SCH ×3 (05:55→17:09)
[2018-04-07 06:29] LABS: BASO % 1 % (0-3); EOS # 0.2 x10^3/uL (0.0-0.7); EOS % 5 % (0-3); HEMATOCRIT 25.2 % (36.0-47.0); HEMOGLOBIN 8.5 g/dL (12.0-15.5); LYMPH # 0.9 x10^3/uL (1.0-4.8); LYMPH % 21 % (24-48); MEAN CORPUSCULAR HEMOGLOBIN 30 pg (25-35); MEAN CORPUSCULAR HGB CONC 34 g/dL (31-37); MEAN CORPUSCULAR VOLUME 89 fL (79-100); MONO # 0.4 x10^3/uL (0.0-1.1); MONO % 9 % (0-9); NEUT # 2.9 x10^3uL (1.8-7.7); NEUT % 64 % (31-73); PLATELET COUNT 191 x10^3/uL (140-400); RED BLOOD COUNT 2.83 x10^6/uL (3.50-5.40); RED CELL DISTRIBUTION WIDTH 12.8 % (11.5-14.5); WHITE BLOOD COUNT 4.5 x10^3/uL (4.0-11.0)
[2018-04-07 06:52] LABS: ALBUMIN 2.4 g/dL (3.4-5.0); ALBUMIN/GLOBULIN RATIO 0.8 (1.0-1.7); CALCIUM 8.3 mg/dL (8.5-10.1); GFR 54.7; POTASSIUM 3.5 mmol/L (3.5-5.1); TOTAL BILIRUBIN 0.4 mg/dL (0.2-1.0); TOTAL PROTEIN 5.5 g/dL (6.4-8.2)
[2018-04-07 06:55] LABS: VANC TR 11.4 mcg/mL (10.0-20.0)
--- NOTE | 2018-04-07 06:55 | PDOC ---
Infectious Disease Note Subjective Subjective pt is feeling good, does have left hip pain off and on ROS ROS no n/v/d/fever Vital Sign Vital Signs Vital Signs Date Time Temp Pulse Resp B/P (MAP) Pulse Ox O2 Delivery O2 Flow Rate FiO2 04/07/18 03:00 98.5 78 18 143/65 (91) 97 Room Air 98.5 Physical Exam PHYSICAL EXAM GENERAL: Alert, oriented female, not in any distress. VITAL SIGNS: Stable, afebrile. HEENT: NAD. NECK: Supple, no JVP, no lymphadenopathy. LUNGS: Clear. HEART: S1, S2 regular. ABDOMEN: Benign. EXTREMITIES: No edema or cyanosis. Left hip incision is unremarkable. Left wrist area has 2 pins visible going into the bone and there is redness in the surrounding area as well as there is very small amount of purulent drainage visible. Culture of that was done by the time I saw the patient with the nurse. NEUROLOGICAL: The patient is neurologically alert, awake and appropriate. No focal neurologic deficit. Labs Lab Laboratory Tests Test 04/06/18 07:56 04/06/18 11:55 04/06/18 16:59 04/06/18 21:03 Glucose (Fingerstick) 109 mg/dL (70-99) 118 mg/dL (70-99) 200 mg/dL (70-99) 134 mg/dL (70-99) Test 04/07/18 06:20 White Blood Count 4.5 x10^3/uL (4.0-11.0) Red Blood Count 2.83 x10^6/uL (3.50-5.40) Hemoglobin 8.5 g/dL (12.0-15.5) Hematocrit 25.2 % (36.0-47.0) Mean Corpuscular Volume 89 fL (79-100) Mean Corpuscular Hemoglobin 30 pg (25-35) Mean Corpuscular Hemoglobin Concent 34 g/dL (31-37) Red Cell Distribution Width 12.8 % (11.5-14.5) Platelet Count 191 x10^3/uL (140-400) Neutrophils (%) (Auto) 64 % (31-73) Lymphocytes (%) (Auto) 21 % (24-48) Monocytes (%) (Auto) 9 % (0-9) Eosinophils (%) (Auto) 5 % (0-3) Basophils (%) (Auto) 1 % (0-3) Neutrophils # (Auto) 2.9 x10^3uL (1.8-7.7) Lymphocytes # (Auto) 0.9 x10^3/uL (1.0-4.8) Monocytes # (Auto) 0.4 x10^3/uL (0.0-1.1) Eosinophils # (Auto) 0.2 x10^3/uL (0.0-0.7) Basophils # (Auto) 0.0 x10^3/uL (0.0-0.2) Micro Microbiology 04/06/18 Blood Culture - Preliminary, Resulted NO GROWTH AFTER 1 DAY 04/05/18 Aerobic Culture, Resulted Pending 04/05/18 Aerobic Culture Result 1 ([facility]), Resulted Pending 04/05/18 Gram Stain - Final, Resulted 04/05/18 Gram Stain Result 1 ([facility]) - Final, Resulted 04/05/18 Gram Stain Result 2 ([facility]) - Final, Resulted Objective Assessment Left wrist infection Left wrist ORIF on 03/15 Left hip ORIF/Hemiarthroplasty on 03/15 DM Plan Plan of Care vanc and zosyn check culture supportive care pt/ot MARILYN MOMIN MD Apr 07, 2018 06:54
[2018-04-07 07:00] VITALS: BP 154/67
[2018-04-07] MEDS: INSULIN LISPRO 300 UNITS/3 ML INSULN.PEN. SQ SCH ×6 (08:00→17:00)
[2018-04-07] MEDS: glyBURIDE 5 MG TABLET PO SCH ×2 (08:20→17:06)
[2018-04-07] MEDS: VANCOMYCIN 1.25 GM in IV NORMAL SALINE 250ML 250 ML IV SCH (08:20)
[2018-04-07] MEDS: CYCLOBENZAPRINE 10 MG TABLET. PO PRN ×2 (08:21→17:07)
[2018-04-07] MEDS: SENNOSIDES/DOCUSATE 8.6/50MG TABLET. PO SCH (08:21)
[2018-04-07] MEDS: MULTIVITAMIN with MINERAL TABLET. PO SCH (08:21)
[2018-04-07] MEDS: LACTOBACILLUS RHAMNOSUS GG 1 CAPSULE. PO SCH ×2 (08:21→21:27)
[2018-04-07] MEDS: amLODIPine BESYLATE 5 MG TABLET PO SCH (08:28)
[2018-04-07] MEDS: POLYETHYLENE GLYCOL 3350 17 GM PACKET. PO SCH (08:38)
[2018-04-07 11:00] VITALS: BP 134/58
--- NOTE | 2018-04-07 12:40 | PDOC ---
PROGRESS NOTES Chief Complaint Chief Complaint left hand fracture with ORIF and hardware, now left hand swelling and redness and pain with exudate. cellulitis, c ID following, on broad abx DM2, insulin, con tthe SSI, c hip pain, recent hip fracture from falling on ice in driveway while retrieving garbage cans History of Present Illness History of Present Illness redness and swelling and discharge a little better Vitals Vitals Vital Signs Date Time Temp Pulse Resp B/P (MAP) Pulse Ox O2 Delivery O2 Flow Rate FiO2 04/07/18 11:00 97.7 70 18 134/58 (83) 95 Room Air 97.7 Physical Exam Physical Exam GENERAL: Alert, oriented female, not in any distress. VITAL SIGNS: Stable, afebrile. HEENT: NAD. NECK: Supple, no JVP, no lymphadenopathy. LUNGS: Clear. HEART: S1, S2 regular. ABDOMEN: Benign. EXTREMITIES: No edema or cyanosis. Left hip incision is unremarkable. Left wrist area has 2 pins visible going into the bone and there is redness in the surrounding area as well as there is very small amount of purulent drainage visible. Culture of that was done by the time I saw the patient with the nurse. NEUROLOGICAL: The patient is neurologically alert, awake and appropriate. No focal neurologic deficit. General: Alert, Cooperative, No acute distress Lungs: Clear Abdomen: Normal bowel sounds, Soft Extremities: No cyanosis, Other (left hand open wound with hardward visualized and exudate, ) Skin: No rashes Labs LABS Laboratory Tests Test 04/06/18 16:59 04/06/18 21:03 04/07/18 06:20 04/07/18 07:18 Glucose (Fingerstick) 200 mg/dL (70-99) 134 mg/dL (70-99) 53 mg/dL (70-99) White Blood Count 4.5 x10^3/uL (4.0-11.0) Red Blood Count 2.83 x10^6/uL (3.50-5.40) Hemoglobin 8.5 g/dL (12.0-15.5) Hematocrit 25.2 % (36.0-47.0) Mean Corpuscular Volume 89 fL (79-100) Mean Corpuscular Hemoglobin 30 pg (25-35) Mean Corpuscular Hemoglobin Concent 34 g/dL (31-37) Red Cell Distribution Width 12.8 % (11.5-14.5) Platelet Count 191 x10^3/uL (140-400) Neutrophils (%) (Auto) 64 % (31-73) Lymphocytes (%) (Auto) 21 % (24-48) Monocytes (%) (Auto) 9 % (0-9) Eosinophils (%) (Auto) 5 % (0-3) Basophils (%) (Auto) 1 % (0-3) Neutrophils # (Auto) 2.9 x10^3uL (1.8-7.7) Lymphocytes # (Auto) 0.9 x10^3/uL (1.0-4.8) Monocytes # (Auto) 0.4 x10^3/uL (0.0-1.1) Eosinophils # (Auto) 0.2 x10^3/uL (0.0-0.7) Basophils # (Auto) 0.0 x10^3/uL (0.0-0.2) Prothrombin Time 14.0 SEC (11.7-14.0) Prothromb Time International Ratio 1.1 (0.8-1.1) Sodium Level 147 mmol/L (136-145) Potassium Level 3.5 mmol/L (3.5-5.1) Chloride Level 106 mmol/L (98-107) Carbon Dioxide Level 29 mmol/L (21-32) Anion Gap 12 (6-14) Blood Urea Nitrogen 15 mg/dL (7-20) Creatinine 1.0 mg/dL (0.6-1.0) Estimated GFR (Cockcroft-Gault) 54.7 BUN/Creatinine Ratio 15 (6-20) Glucose Level 61 mg/dL (70-99) Calcium Level 8.3 mg/dL (8.5-10.1) Total Bilirubin 0.4 mg/dL (0.2-1.0) Aspartate Amino Transf (AST/SGOT) 14 U/L (15-37) Alanine Aminotransferase (ALT/SGPT) 10 U/L (14-59) Alkaline Phosphatase 112 U/L (46-116) Total Protein 5.5 g/dL (6.4-8.2) Albumin 2.4 g/dL (3.4-5.0) Albumin/Globulin Ratio 0.8 (1.0-1.7) Vancomycin Level Trough 11.4 mcg/mL (10.0-20.0) Vancomycin Last Dose Date 04/06/18 Vancomycin Last Dose Time 1300 Test 04/07/18 08:09 04/07/18 11:00 04/07/18 11:25 Glucose (Fingerstick) 187 mg/dL (70-99) 56 mg/dL (70-99) 146 mg/dL (70-99) Review of Systems Review of Systems no n.vd. feels better Assessment and Plan Assessmemt and Plan Problems Medical Problems: (1) Infected surgical wound Status: Acute Comment Review of Relevant I have reviewed the following items caesar (where applicable) has been applied. Labs Laboratory Tests Test 04/05/18 17:25 04/05/18 20:30 04/05/18 22:00 04/05/18 23:22 White Blood Count 5.7 x10^3/uL (4.0-11.0) Red Blood Count 3.20 x10^6/uL (3.50-5.40) Hemoglobin 9.4 g/dL (12.0-15.5) Hematocrit 28.7 % (36.0-47.0) Mean Corpuscular Volume 90 fL (79-100) Mean Corpuscular Hemoglobin 29 pg (25-35) Mean Corpuscular Hemoglobin Concent 33 g/dL (31-37) Red Cell Distribution Width 12.8 % (11.5-14.5) Platelet Count 244 x10^3/uL (140-400) Neutrophils (%) (Auto) 68 % (31-73) Lymphocytes (%) (Auto) 18 % (24-48) Monocytes (%) (Auto) 8 % (0-9) Eosinophils (%) (Auto) 5 % (0-3) Basophils (%) (Auto) 1 % (0-3) Neutrophils # (Auto) 3.9 x10^3uL (1.8-7.7) Lymphocytes # (Auto) 1.0 x10^3/uL (1.0-4.8) Monocytes # (Auto) 0.5 x10^3/uL (0.0-1.1) Eosinophils # (Auto) 0.3 x10^3/uL (0.0-0.7) Basophils # (Auto) 0.1 x10^3/uL (0.0-0.2) Sodium Level 136 mmol/L (136-145) Potassium Level 4.5 mmol/L (3.5-5.1) Chloride Level 97 mmol/L (98-107) Carbon Dioxide Level 30 mmol/L (21-32) Anion Gap 9 (6-14) Blood Urea Nitrogen 25 mg/dL (7-20) Creatinine 1.3 mg/dL (0.6-1.0) Estimated GFR (Cockcroft-Gault) 40.4 BUN/Creatinine Ratio 19 (6-20) Glucose Level 282 mg/dL (70-99) Lactic Acid Level 1.1 mmol/L (0.4-2.0) 0.7 mmol/L (0.4-2.0) Calcium Level 9.4 mg/dL (8.5-10.1) Total Bilirubin 0.5 mg/dL (0.2-1.0) Aspartate Amino Transf (AST/SGOT) 17 U/L (15-37) Alanine Aminotransferase (ALT/SGPT) 16 U/L (14-59) Alkaline Phosphatase 161 U/L (46-116) Total Protein 7.6 g/dL (6.4-8.2) Albumin 3.3 g/dL (3.4-5.0) Albumin/Globulin Ratio 0.8 (1.0-1.7) Procalcitonin < 0.10 ng/mL (0.00-0.10) Glucose (Fingerstick) 199 mg/dL (70-99) 312 mg/dL (70-99) Test 04/06/18 04:10 04/06/18 07:56 04/06/18 11:55 04/06/18 16:59 White Blood Count 3.8 x10^3/uL (4.0-11.0) Red Blood Count 2.63 x10^6/uL (3.50-5.40) Hemoglobin 7.8 g/dL (12.0-15.5) Hematocrit 23.6 % (36.0-47.0) Mean Corpuscular Volume 90 fL (79-100) Mean Corpuscular Hemoglobin 30 pg (25-35) Mean Corpuscular Hemoglobin Concent 33 g/dL (31-37) Red Cell Distribution Width 13.2 % (11.5-14.5) Platelet Count 187 x10^3/uL (140-400) Neutrophils (%) (Auto) 59 % (31-73) Lymphocytes (%) (Auto) 23 % (24-48) Monocytes (%) (Auto) 11 % (0-9) Eosinophils (%) (Auto) 6 % (0-3) Basophils (%) (Auto) 1 % (0-3) Neutrophils # (Auto) 2.3 x10^3uL (1.8-7.7) Lymphocytes # (Auto) 0.9 x10^3/uL (1.0-4.8) Monocytes # (Auto) 0.4 x10^3/uL (0.0-1.1) Eosinophils # (Auto) 0.2 x10^3/uL (0.0-0.7) Basophils # (Auto) 0.0 x10^3/uL (0.0-0.2) Prothrombin Time 14.8 SEC (11.7-14.0) Prothromb Time International Ratio 1.2 (0.8-1.1) Sodium Level 142 mmol/L (136-145) Potassium Level 4.2 mmol/L (3.5-5.1) Chloride Level 105 mmol/L (98-107) Carbon Dioxide Level 30 mmol/L (21-32) Anion Gap 7 (6-14) Blood Urea Nitrogen 20 mg/dL (7-20) Creatinine 1.0 mg/dL (0.6-1.0) Estimated GFR (Cockcroft-Gault) 54.7 BUN/Creatinine Ratio 20 (6-20) Glucose Level 196 mg/dL (70-99) Calcium Level 8.6 mg/dL (8.5-10.1) Total Bilirubin 0.4 mg/dL (0.2-1.0) Aspartate Amino Transf (AST/SGOT) 13 U/L (15-37) Alanine Aminotransferase (ALT/SGPT) 11 U/L (14-59) Alkaline Phosphatase 118 U/L (46-116) Total Protein 5.7 g/dL (6.4-8.2) Albumin 2.4 g/dL (3.4-5.0) Albumin/Globulin Ratio 0.7 (1.0-1.7) Glucose (Fingerstick) 109 mg/dL (70-99) 118 mg/dL (70-99) 200 mg/dL (70-99) Test 04/06/18 21:03 04/07/18 06:20 04/07/18 07:18 04/07/18 08:09 Glucose (Fingerstick) 134 mg/dL (70-99) 53 mg/dL (70-99) 187 mg/dL (70-99) White Blood Count 4.5 x10^3/uL (4.0-11.0) Red Blood Count 2.83 x10^6/uL (3.50-5.40) Hemoglobin 8.5 g/dL (12.0-15.5) Hematocrit 25.2 % (36.0-47.0) Mean Corpuscular Volume 89 fL (79-100) Mean Corpuscular Hemoglobin 30 pg (25-35) Mean Corpuscular Hemoglobin Concent 34 g/dL (31-37) Red Cell Distribution Width 12.8 % (11.5-14.5) Platelet Count 191 x10^3/uL (140-400) Neutrophils (%) (Auto) 64 % (31-73) Lymphocytes (%) (Auto) 21 % (24-48) Monocytes (%) (Auto) 9 % (0-9) Eosinophils (%) (Auto) 5 % (0-3) Basophils (%) (Auto) 1 % (0-3) Neutrophils # (Auto) 2.9 x10^3uL (1.8-7.7) Lymphocytes # (Auto) 0.9 x10^3/uL (1.0-4.8) Monocytes # (Auto) 0.4 x10^3/uL (0.0-1.1) Eosinophils # (Auto) 0.2 x10^3/uL (0.0-0.7) Basophils # (Auto) 0.0 x10^3/uL (0.0-0.2) Prothrombin Time 14.0 SEC (11.7-14.0) Prothromb Time International Ratio 1.1 (0.8-1.1) Sodium Level 147 mmol/L (136-145) Potassium Level 3.5 mmol/L (3.5-5.1) Chloride Level 106 mmol/L (98-107) Carbon Dioxide Level 29 mmol/L (21-32) Anion Gap 12 (6-14) Blood Urea Nitrogen 15 mg/dL (7-20) Creatinine 1.0 mg/dL (0.6-1.0) Estimated GFR (Cockcroft-Gault) 54.7 BUN/Creatinine Ratio 15 (6-20) Glucose Level 61 mg/dL (70-99) Calcium Level 8.3 mg/dL (8.5-10.1) Total Bilirubin 0.4 mg/dL (0.2-1.0) Aspartate Amino Transf (AST/SGOT) 14 U/L (15-37) Alanine Aminotransferase (ALT/SGPT) 10 U/L (14-59) Alkaline Phosphatase 112 U/L (46-116) Total Protein 5.5 g/dL (6.4-8.2) Albumin 2.4 g/dL (3.4-5.0) Albumin/Globulin Ratio 0.8 (1.0-1.7) Vancomycin Level Trough 11.4 mcg/mL (10.0-20.0) Vancomycin Last Dose Date 04/06/18 Vancomycin Last Dose Time 1300 Test 04/07/18 11:00 04/07/18 11:25 Glucose (Fingerstick) 56 mg/dL (70-99) 146 mg/dL (70-99) Laboratory Tests Test 04/06/18 16:59 04/06/18 21:03 04/07/18 06:20 04/07/18 07:18 Glucose (Fingerstick) 200 mg/dL (70-99) 134 mg/dL (70-99) 53 mg/dL (70-99) White Blood Count 4.5 x10^3/uL (4.0-11.0) Red Blood Count 2.83 x10^6/uL (3.50-5.40) Hemoglobin 8.5 g/dL (12.0-15.5) Hematocrit 25.2 % (36.0-47.0) Mean Corpuscular Volume 89 fL (79-100) Mean Corpuscular Hemoglobin 30 pg (25-35) Mean Corpuscular Hemoglobin Concent 34 g/dL (31-37) Red Cell Distribution Width 12.8 % (11.5-14.5) Platelet Count 191 x10^3/uL (140-400) Neutrophils (%) (Auto) 64 % (31-73) Lymphocytes (%) (Auto) 21 % (24-48) Monocytes (%) (Auto) 9 % (0-9) Eosinophils (%) (Auto) 5 % (0-3) Basophils (%) (Auto) 1 % (0-3) Neutrophils # (Auto) 2.9 x10^3uL (1.8-7.7) Lymphocytes # (Auto) 0.9 x10^3/uL (1.0-4.8) Monocytes # (Auto) 0.4 x10^3/uL (0.0-1.1) Eosinophils # (Auto) 0.2 x10^3/uL (0.0-0.7) Basophils # (Auto) 0.0 x10^3/uL (0.0-0.2) Prothrombin Time 14.0 SEC (11.7-14.0) Prothromb Time International Ratio 1.1 (0.8-1.1) Sodium Level 147 mmol/L (136-145) Potassium Level 3.5 mmol/L (3.5-5.1) Chloride Level 106 mmol/L (98-107) Carbon Dioxide Level 29 mmol/L (21-32) Anion Gap 12 (6-14) Blood Urea Nitrogen 15 mg/dL (7-20) Creatinine 1.0 mg/dL (0.6-1.0) Estimated GFR (Cockcroft-Gault) 54.7 BUN/Creatinine Ratio 15 (6-20) Glucose Level 61 mg/dL (70-99) Calcium Level 8.3 mg/dL (8.5-10.1) Total Bilirubin 0.4 mg/dL (0.2-1.0) Aspartate Amino Transf (AST/SGOT) 14 U/L (15-37) Alanine Aminotransferase (ALT/SGPT) 10 U/L (14-59) Alkaline Phosphatase 112 U/L (46-116) Total Protein 5.5 g/dL (6.4-8.2) Albumin 2.4 g/dL (3.4-5.0) Albumin/Globulin Ratio 0.8 (1.0-1.7) Vancomycin Level Trough 11.4 mcg/mL (10.0-20.0) Vancomycin Last Dose Date 04/06/18 Vancomycin Last Dose Time 1300 Test 04/07/18 08:09 04/07/18 11:00 04/07/18 11:25 Glucose (Fingerstick) 187 mg/dL (70-99) 56 mg/dL (70-99) 146 mg/dL (70-99) Microbiology 04/06/18 Blood Culture - Preliminary, Resulted NO GROWTH AFTER 1 DAY 04/05/18 Aerobic Culture, Resulted Pending 04/05/18 Aerobic Culture Result 1 (LANA), Resulted Pending 04/05/18 Gram Stain - Final, Resulted 04/05/18 Gram Stain Result 1 (LANA) - Final, Resulted 04/05/18 Gram Stain Result 2 (LANA) - Final, Resulted Medications Current Medications Morphine Sulfate (Morphine Sulfate) 5 mg 1X ONCE IM ; Start 04/05/18 at 16:45; Stop 04/05/18 at 16:46; Status Cancel Sodium Chloride 1,000 ml @ 1,920 mls/hr Q32M IV Last administered on at 18:10; Start 04/05/18 at 17:15; Stop 04/05/18 at 18:15; Status DC Piperacillin Sod/ Tazobactam Sod 4.5 gm/Sodium Chloride 100 ml @ 200 mls/hr 1X ONCE IV Last administered on 04/05/18at 18:18; Start 04/05/18 at 17:15; Stop 04/05/18 at 17:44; Status DC Vancomycin HCl (Vanco Per Pharmacy) 1 each 1X ONCE MC ; Start 04/05/18 at 17:00 ; Stop 04/05/18 at 17:06; Status DC Morphine Sulfate (Morphine Sulfate) 5 mg 1X ONCE IV Last administered on at 18:12; Start 04/05/18 at 17:00; Stop 04/05/18 at 17:05; Status DC Vancomycin HCl 1.75 gm/Sodium Chloride 500 ml @ 250 mls/hr 1X ONCE IV Last administered on 04/05/18at 19:01; Start 04/05/18 at 17:15; Stop 04/05/18 at 19:14 ; Status DC Ondansetron HCl (Zofran) 4 mg PRN Q8HRS PRN IV NAUSEA/VOMITING Last administered on 04/05/18at 18:11; Start 04/05/18 at 17:15; Stop 04/05/18 at 18:49 ; Status DC Morphine Sulfate (Morphine Sulfate) 2 mg PRN Q2HR PRN IV PAIN; Start 04/05/18 at 17:15; Stop 04/05/18 at 18:49; Status DC Ondansetron HCl (Zofran) 4 mg PRN Q8HRS PRN IV NAUSEA/VOMITING; Start 04/05/18 at 18:45; Stop 04/06/18 at 18:44; Status DC Morphine Sulfate (Morphine Sulfate) 4 mg PRN Q2HR PRN IV PAIN Last administered on 04/05/18at 23:25; Start 04/05/18 at 18:45; Stop 04/06/18 at 18:44 ; Status DC Acetaminophen/ Hydrocodone Bitart (Lortab 7.5/325) 1 tab PRN Q4HRS PRN PO PAIN MODERATE TO SEVERE Last administered on 04/06/18 00:29; Start 04/05/18 at 22:15 ; Stop 04/06/18 at 02:41; Status DC Senna/Docusate Sodium (Senna Plus) 1 tab DAILY PO Last administered on 08:21; Start 04/06/18 at 09:00 Amlodipine Besylate (Norvasc) 2.5 mg DAILY PO Last administered on 04/07/18 08: 28; Start 04/06/18 at 09:00 Citalopram Hydrobromide (CeleXA) 40 mg QHS PO Last administered on 04/06/18at 20: 53; Start 04/05/18 at 22:30 Insulin Human Lispro (HumaLOG) 10 units TIDWMEALS SQ Last administered on 08:38; Start 04/06/18 at 08:00 Insulin Glargine (Lantus) 33 units QHS SQ Last administered on 04/05/18 23:25 ; Start 04/05/18 at 22:30; Stop 04/06/18 at 02:41; Status DC Polyethylene Glycol (miraLAX PACKET) 17 gm PRN DAILY PRN PO CONSTIPATION 1ST CHOICE; Start 04/06/18 at 09:00 Simvastatin (Zocor) 20 mg HS PO Last administered on 04/06/18at 20:53; Start at 22:30 Non-Formulary Medication (Warfarin Sodium (Coumadin)) 3 mg 1X WARF PO ; Start 04/06/18 at 16:00; Status UNV Warfarin Sodium (Coumadin Per Physician) 1 each PRN DAILY PRN MC SEE COMMENTS Last administered on 04/06/18 05:33; Start 04/05/18 at 22:30; Stop 04/06/18 at 12 :57; Status DC Insulin Glargine (Lantus) 15 units QHS SQ Last administered on 04/06/18at 21:08; Start 04/06/18 at 21:00 Cephalexin HCl (Keflex) 250 mg TID PO ; Start 04/06/18 at 09:00; Stop 04/06/18 at 09:44; Status DC Cyclobenzaprine HCl (Flexeril) 10 mg PRN Q8HRS PRN PO MUSCLE SPASMS Last administered on 04/07/18 08:21; Start 04/06/18 at 02:45 Glyburide (Diabeta) 5 mg BIDWMEALS PO Last administered on 04/07/18 08:20; Start 04/06/18 at 08:00 Polyethylene Glycol (miraLAX PACKET) 17 gm DAILY PO ; Start 04/06/18 at 09:00 Oxycodone HCl (Roxicodone) 15 mg PRN Q3HRS PRN PO SEVERE PAIN Last administered on 04/07/18 08:22; Start 04/06/18 at 02:45 Senna/Docusate Sodium (Senna Plus) 2 tab PRN QHS PRN PO CONSTIPATION 2ND CHOICE ; Start 04/06/18 at 02:45 Lactobacillus Rhamnosus (Culturelle) 1 cap BID PO Last administered on at 08:21; Start 04/06/18 at 09:00 Warfarin Sodium (Coumadin) 3 mg DAILY16 PO ; Start 04/06/18 at 16:00; Stop at 16:00; Status DC Insulin Human Lispro (HumaLOG) 0-9 UNITS TIDWMEALS SQ Last administered on at 17:09; Start 04/06/18 at 09:30 Dextrose (Dextrose 50%-Water Syringe) 12.5 gm PRN Q15MIN PRN IV SEE COMMENTS Last administered on 04/07/18at 11:03; Start 04/06/18 at 09:00 Vancomycin HCl (Vanco Per Pharmacy) 1 each PRN DAILY PRN MC SEE COMMENTS Last administered on 04/06/18 13:11; Start 04/06/18 at 09:45 Piperacillin Sod/ Tazobactam Sod 3.375 gm/Sodium Chloride 50 ml @ 100 mls/hr Q6HRS IV Last administered on 04/07/18 11:07; Start 04/06/18 at 10:00 Vancomycin HCl 1.25 gm/Sodium Chloride 250 ml @ 167 mls/hr Q18H IV Last administered on 04/07/18 08:20; Start 04/06/18 at 13:00 Vancomycin HCl (Vancomycin Trough Level) 1 each 1X ONCE MC ; Start 04/07/18 at 06:30; Stop 04/07/18 at 06:31; Status DC Warfarin Sodium (Coumadin Per Pharmacy) 1 each PRN DAILY PRN MC SEE COMMENTS Last administered on 04/06/18at 13:01; Start 04/06/18 at 13:00 Warfarin Sodium (Coumadin) 4 mg 1X WARF ONCE PO Last administered on 04/06/18at 16:55; Start 04/06/18 at 16:00; Stop 04/06/18 at 16:01; Status DC Multivitamins (Thera M Plus) 1 tab DAILY PO Last administered on 04/07/18 08:21 ; Start 04/06/18 at 16:00 Active Scripts Active Senna-Time S Tablet (Sennosides/Docusate Sodium) 1 Each Tablet 1 Tab PO DAILY 10 Days Polyethylene Glycol 3350 17 Gm Powd.pack 17 Gm PO PRN DAILY PRN 10 Days Hydrocodone-Apap 7.5-325 (Hydrocodone Bit/Acetaminophen) 1 Tab Tablet 1 Tab PO PRN Q4HRS PRN 14 Days Coumadin (Warfarin Sodium) 3 Mg Tablet 3 Mg PO 1X WARF 10 Days Reported Levemir (Insulin Detemir) 100 Unit/1 Ml Vial 33 Unit SQ HS Novolog (Insulin Aspart) 100 Unit/1 Ml Cartridge 10 Unit SQ TIDWMEALS Amlodipine Besylate 2.5 Mg Tablet 2.5 Mg PO DAILY Celexa (Citalopram Hydrobromide) 40 Mg Tablet 1 Tab PO HS Simvastatin 20 Mg Tablet 1 Tab PO QHS Vitals/I & O Vital Sign - Last 24 Hours 04/06/18 04/06/18 04/06/18 04/06/18 14:36 15:00 19:00 19:45 Temp 98.5 97.8 98.5 97.8 Pulse 85 85 Resp 16 18 B/P (MAP) 124/67 (86) 136/62 (86) Pulse Ox 99 95 O2 Delivery Room Air Room Air Room Air Room Air 04/06/18 04/07/18 04/07/18 04/07/18 23:00 00:48 03:00 07:00 Temp 98.4 98.5 98.1 98.4 98.5 98.1 Pulse 65 78 77 Resp 18 18 18 B/P (MAP) 155/66 (95) 143/65 (91) 154/67 (96) Pulse Ox 96 97 98 O2 Delivery Room Air Room Air Room Air Room Air 04/07/18 04/07/18 04/07/18 04/07/18 08:22 08:28 10:41 11:00 Temp 97.7 97.7 Pulse 77 70 Resp 18 B/P (MAP) 154/67 134/58 (83) Pulse Ox 98 98 95 O2 Delivery Room Air Room Air Room Air Intake and Output 04/06/18 04/06/18 04/07/18 15:00 23:00 07:00 Intake Total 700 ml Output Total 800 ml Balance -800 ml 700 ml EBENEZER OSULLIVAN MD Apr 07, 2018 12:40
--- NOTE | 2018-04-07 12:43 | NUR ---
Pharmacy Warfarin Dosing Note S: Pharmacy consulted to assist with anticoagulation therapy started 03/15/18 O: ESTEFANÍA HERNANDEZ is a 72 year old F with Hip Fracture, femur fracture LABS: Last INR: 1.1 Last HGB: 8.5 Last HCT: 25.2 Last PLT: 191 Last dose of 4 mg given on 04/06/18 at 1301 Ongoing Drug Interactions: ZOSYN,CELEXA A:INR of 1.1 is below desired range. Target range for this patient is: 1.6 - 2.5 P: Warfarin dose: 7.5 mg Today at 1600 Bridge Therapy: None Next INR due 3/3 AM Pharmacy anticoagulation service will continue to follow. BEATRICE GARG [facility], 04/07/18 [id number]
[2018-04-07] MEDS: VANCOMYCIN PER PHARMACY MC PRN (12:46)
--- NOTE | 2018-04-07 12:47 | NUR ---
Pharmacy Vancomycin Dosing Note S: Consulted to monitor and dose vancomycin started 04/05/18. O: ESTEFANÍA HERNANDEZ is a 72 year old F with post-op wound infection . Other Antibiotics: ZOSYN 3.375G IV Q6HRS LABS: Last BUN: 15 Last Creatinine: 1.0 Creatinine Clearance: 56 mL/min Last WBC: 4.5 Last Platelets: 191 Tmax (past 24 hours): 98.1 Microbiology: BLOOD AND WOUND CX PENDING Drug Levels: Last Trough level: 11.4 on 04/07/18 at 0620 Last dose given 04/07/18 at 0820 Vancomycin Dosing: Dosing Weight: Actual Target Trough: 10-20 A: Based on: VANCO dosing protocol P: 1. Continue Vancomycin 1250 mg IV q18h 2. Follow up Trough level in 5-7 days or if renal function changes 3. Pharmacy will continue to monitor, follow and adjust therapy as needed. BEATRICE GARG [facility], 04/07/18 [id number]
[2018-04-07 15:00] VITALS: BP 154/70
[2018-04-07] MEDS ORDERED: WARFARIN 7.5 MG TABLET. PO ONE (16:00)
--- NOTE | 2018-04-07 18:07 | NUR ---
Pt's blood sugars drop very low very easily with humalog doses. This AM, pt blood sugar was 187, 10 units given, pt blood sugar fell to 53. dextrose given, as well as food/juice. Pt states she has been sensitive to insulin since she's been admitted to the hospital. Dinner insulin held, will continue to monitor.
[2018-04-07 19:00] VITALS: BP 148/59
[2018-04-07] MEDS: INSULIN GLARGINE 300 UNITS/3 ML INSULN.PEN. SQ SCH (21:26)
[2018-04-07] MEDS: SIMVASTATIN 20 MG TABLET PO SCH (21:27)
[2018-04-07] MEDS: CITALOPRAM 20 MG TABLET. PO SCH (21:28)
[2018-04-07 23:00] VITALS: BP 148/63
[2018-04-08] MEDS: PIPERACILLIN/TAZOBACTAM 3.375 GM in IV NORMAL SALINE 50ML 50 ML IV SCH ×4 (00:08→16:28)
[2018-04-08] MEDS: oxyCODONE IR 5 MG TABLET PO PRN ×3 (01:18→21:00)
[2018-04-08] MEDS: VANCOMYCIN 1.25 GM in IV NORMAL SALINE 250ML 250 ML IV SCH ×2 (01:23→19:13)
[2018-04-08 03:00] VITALS: BP 137/58
[2018-04-08 05:42] LABS: HEMOGLOBIN A1C 9.1 % (4.8-5.6)
[2018-04-08 06:57] LABS: PROTHROMBIN TIME PATIENT 14.2 SEC (11.7-14.0)
[2018-04-08 07:00] VITALS: BP 144/66
[2018-04-08 07:08] LABS: CREATININE 1.1 mg/dL (0.6-1.0)
[2018-04-08] MEDS: INSULIN LISPRO 300 UNITS/3 ML INSULN.PEN. SQ SCH ×4 (07:29→16:34)
[2018-04-08] MEDS: LACTOBACILLUS RHAMNOSUS GG 1 CAPSULE. PO SCH ×2 (08:10→20:59)
[2018-04-08] MEDS: glyBURIDE 5 MG TABLET PO SCH ×2 (08:11→16:27)
[2018-04-08] MEDS: CYCLOBENZAPRINE 10 MG TABLET. PO PRN (08:12)
[2018-04-08] MEDS: amLODIPine BESYLATE 5 MG TABLET PO SCH (08:12)
[2018-04-08] MEDS: SENNOSIDES/DOCUSATE 8.6/50MG TABLET. PO SCH (08:12)
[2018-04-08] MEDS: POLYETHYLENE GLYCOL 3350 17 GM PACKET. PO SCH (08:12)
[2018-04-08] MEDS: MULTIVITAMIN with MINERAL TABLET. PO SCH (08:12)
--- NOTE | 2018-04-08 10:06 | PDOC ---
Infectious Disease Note Subjective Subjective Pain control No F/C/S/N/V/D ROS ROS per HPI otherwise neg Vital Sign Vital Signs Vital Signs Date Time Temp Pulse Resp B/P (MAP) Pulse Ox O2 Delivery O2 Flow Rate FiO2 04/08/18 08:12 80 144/66 04/08/18 07:00 98.2 18 97 Room Air 98.2 Physical Exam PHYSICAL EXAM GENERAL: Propped up in bed, alert, NAD HEENT: Oral cavity clear NECK: Supple LUNGS: Clear. HEART: S1, S2 regular. ABDOMEN: Soft and nontender EXTREMITIES: No edema or cyanosis. Left hip incision bandaged, no area redness or induration. Left wrist bandaged, NEUROLOGICAL: Alert, awake and appropriate. PIV Labs Lab Laboratory Tests Test 04/07/18 11:00 04/07/18 11:25 04/07/18 16:34 04/07/18 20:36 Glucose (Fingerstick) 56 mg/dL (70-99) 146 mg/dL (70-99) 218 mg/dL (70-99) 254 mg/dL (70-99) Test 04/08/18 06:35 04/08/18 07:27 Prothrombin Time 14.2 SEC (11.7-14.0) Prothromb Time International Ratio 1.1 (0.8-1.1) Creatinine 1.1 mg/dL (0.6-1.0) Estimated GFR (Cockcroft-Gault) 49.0 Glucose (Fingerstick) 137 mg/dL (70-99) Micro Microbiology 04/06/18 Blood Culture - Preliminary, Resulted NO GROWTH AFTER 2 DAYS 04/05/18 Aerobic Culture - Preliminary, Resulted 04/05/18 Aerobic Culture Result 1 (LANA) - Preliminary, Resulted 04/05/18 Gram Stain - Final, Resulted 04/05/18 Gram Stain Result 1 (LANA) - Final, Resulted 04/05/18 Gram Stain Result 2 (LANA) - Final, Resulted Objective Assessment Left wrist infection with the 2 pins visible going into the bone. Left wrist ORIF on 03/15 Left hip ORIF/Hemiarthroplasty on 03/15 DM Plan Plan of Care Vanc and Zosyn Trough 11.4 f/u cultures supportive care PT/OT Attending Co-Sign The patient was seen and interviewed as well as examined at the bedside. The chart was reviewed. The case was discussed. Agree with the plan of care. TRAY HAWLEY APRN Apr 08, 2018 10:06 MARILYN MOMIN MD Apr 08, 2018 11:32
[2018-04-08 11:00] VITALS: BP 144/62
--- NOTE | 2018-04-08 11:38 | NUR ---
Pharmacy Warfarin Dosing Note S: Pharmacy consulted to assist with anticoagulation therapy started 03/15/18 O: ESTEFANÍA HERNANDEZ is a 72 year old F with Hip Fracture femur fracture LABS: Last INR: 1.1 Last HGB: 8.5 Last HCT: 25.2 Last PLT: 191 Last dose of 7.5 mg given on 04/07/18 at 1706 Vitamin K given: N Ongoing Drug Interactions: ZOSYN,CELEXA A:INR of 1.1 is below desired range. Target range for this patient is: 1.6 - 2.5 P: Warfarin dose: 6 mg Today at 1600 Bridge Therapy: None Next INR due 3/4 AM Pharmacy anticoagulation service will continue to follow. BEATRICE GARG [facility] [place], 04/08/18 0305
[2018-04-08] MEDS: VANCOMYCIN PER PHARMACY MC PRN (11:41)
[2018-04-08] MEDS ORDERED: BUDESONIDE 0.5 MG/2 ML NEBU. NEB SCH (12:00)
--- NOTE | 2018-04-08 12:41 | PDOC ---
PROGRESS NOTES Chief Complaint Chief Complaint left hand fracture with ORIF and hardware, now left hand swelling and redness and pain with exudate. cellulitis, c ID following, on broad abx DM2, insulin, con tthe SSI, c hip pain, recent hip fracture from falling on ice in driveway while retrieving garbage cans History of Present Illness History of Present Illness redness and swelling and discharge a little better dressing changed by Dr. Woo with me in the room, good granulation at base, she is much stronger, discussed with PT, patient had been planning on DC from [facility], she would prefer to go home with home health when abx can be taper to made PO Vitals Vitals Vital Signs Date Time Temp Pulse Resp B/P (MAP) Pulse Ox O2 Delivery O2 Flow Rate FiO2 04/08/18 11:00 97.9 87 16 144/62 (89) 98 Room Air 97.9 Physical Exam Physical Exam GENERAL: Propped up in bed, alert, NAD HEENT: Oral cavity clear NECK: Supple LUNGS: Clear. HEART: S1, S2 regular. ABDOMEN: Soft and nontender EXTREMITIES: No edema or cyanosis. Left hip incision bandaged, no area redness or induration. Left wrist bandaged, NEUROLOGICAL: Alert, awake and appropriate. PIV General: Alert, Cooperative, No acute distress Lungs: Clear Abdomen: Normal bowel sounds, Soft Extremities: No cyanosis, Other (left hand open wound with hardward visualized and exudate, ) Skin: No rashes Labs LABS Laboratory Tests Test 04/07/18 16:34 04/07/18 20:36 04/08/18 06:35 04/08/18 07:27 Glucose (Fingerstick) 218 mg/dL (70-99) 254 mg/dL (70-99) 137 mg/dL (70-99) Prothrombin Time 14.2 SEC (11.7-14.0) Prothromb Time International Ratio 1.1 (0.8-1.1) Creatinine 1.1 mg/dL (0.6-1.0) Estimated GFR (Cockcroft-Gault) 49.0 Test 04/08/18 11:13 Glucose (Fingerstick) 209 mg/dL (70-99) Review of Systems Review of Systems no n.v.d Assessment and Plan Assessmemt and Plan Problems Medical Problems: (1) Infected surgical wound Status: Acute Comment Review of Relevant I have reviewed the following items caesar (where applicable) has been applied. Labs Laboratory Tests Test 04/06/18 16:59 04/06/18 21:03 04/07/18 06:20 04/07/18 07:18 Glucose (Fingerstick) 200 mg/dL (70-99) 134 mg/dL (70-99) 53 mg/dL (70-99) White Blood Count 4.5 x10^3/uL (4.0-11.0) Red Blood Count 2.83 x10^6/uL (3.50-5.40) Hemoglobin 8.5 g/dL (12.0-15.5) Hematocrit 25.2 % (36.0-47.0) Mean Corpuscular Volume 89 fL (79-100) Mean Corpuscular Hemoglobin 30 pg (25-35) Mean Corpuscular Hemoglobin Concent 34 g/dL (31-37) Red Cell Distribution Width 12.8 % (11.5-14.5) Platelet Count 191 x10^3/uL (140-400) Neutrophils (%) (Auto) 64 % (31-73) Lymphocytes (%) (Auto) 21 % (24-48) Monocytes (%) (Auto) 9 % (0-9) Eosinophils (%) (Auto) 5 % (0-3) Basophils (%) (Auto) 1 % (0-3) Neutrophils # (Auto) 2.9 x10^3uL (1.8-7.7) Lymphocytes # (Auto) 0.9 x10^3/uL (1.0-4.8) Monocytes # (Auto) 0.4 x10^3/uL (0.0-1.1) Eosinophils # (Auto) 0.2 x10^3/uL (0.0-0.7) Basophils # (Auto) 0.0 x10^3/uL (0.0-0.2) Prothrombin Time 14.0 SEC (11.7-14.0) Prothromb Time International Ratio 1.1 (0.8-1.1) Sodium Level 147 mmol/L (136-145) Potassium Level 3.5 mmol/L (3.5-5.1) Chloride Level 106 mmol/L (98-107) Carbon Dioxide Level 29 mmol/L (21-32) Anion Gap 12 (6-14) Blood Urea Nitrogen 15 mg/dL (7-20) Creatinine 1.0 mg/dL (0.6-1.0) Estimated GFR (Cockcroft-Gault) 54.7 BUN/Creatinine Ratio 15 (6-20) Glucose Level 61 mg/dL (70-99) Hemoglobin A1c 9.1 % (4.8-5.6) Calcium Level 8.3 mg/dL (8.5-10.1) Total Bilirubin 0.4 mg/dL (0.2-1.0) Aspartate Amino Transf (AST/SGOT) 14 U/L (15-37) Alanine Aminotransferase (ALT/SGPT) 10 U/L (14-59) Alkaline Phosphatase 112 U/L (46-116) Total Protein 5.5 g/dL (6.4-8.2) Albumin 2.4 g/dL (3.4-5.0) Albumin/Globulin Ratio 0.8 (1.0-1.7) Vancomycin Level Trough 11.4 mcg/mL (10.0-20.0) Vancomycin Last Dose Date 04/06/18 Vancomycin Last Dose Time 1300 Test 04/07/18 08:09 04/07/18 11:00 04/07/18 11:25 04/07/18 16:34 Glucose (Fingerstick) 187 mg/dL (70-99) 56 mg/dL (70-99) 146 mg/dL (70-99) 218 mg/dL (70-99) Test 04/07/18 20:36 04/08/18 06:35 04/08/18 07:27 04/08/18 11:13 Glucose (Fingerstick) 254 mg/dL (70-99) 137 mg/dL (70-99) 209 mg/dL (70-99) Prothrombin Time 14.2 SEC (11.7-14.0) Prothromb Time International Ratio 1.1 (0.8-1.1) Creatinine 1.1 mg/dL (0.6-1.0) Estimated GFR (Cockcroft-Gault) 49.0 Laboratory Tests Test 04/07/18 16:34 04/07/18 20:36 04/08/18 06:35 04/08/18 07:27 Glucose (Fingerstick) 218 mg/dL (70-99) 254 mg/dL (70-99) 137 mg/dL (70-99) Prothrombin Time 14.2 SEC (11.7-14.0) Prothromb Time International Ratio 1.1 (0.8-1.1) Creatinine 1.1 mg/dL (0.6-1.0) Estimated GFR (Cockcroft-Gault) 49.0 Test 04/08/18 11:13 Glucose (Fingerstick) 209 mg/dL (70-99) Microbiology 04/06/18 Blood Culture - Preliminary, Resulted NO GROWTH AFTER 2 DAYS 04/05/18 Aerobic Culture - Preliminary, Resulted 04/05/18 Aerobic Culture Result 1 (LANA) - Preliminary, Resulted 04/05/18 Gram Stain - Final, Resulted 04/05/18 Gram Stain Result 1 (LANA) - Final, Resulted 04/05/18 Gram Stain Result 2 (LANA) - Final, Resulted Medications Current Medications Morphine Sulfate (Morphine Sulfate) 5 mg 1X ONCE IM ; Start 04/05/18 at 16:45; Stop 04/05/18 at 16:46; Status Cancel Sodium Chloride 1,000 ml @ 1,920 mls/hr Q32M IV Last administered on at 18:10; Start 04/05/18 at 17:15; Stop 04/05/18 at 18:15; Status DC Piperacillin Sod/ Tazobactam Sod 4.5 gm/Sodium Chloride 100 ml @ 200 mls/hr 1X ONCE IV Last administered on 04/05/18at 18:18; Start 04/05/18 at 17:15; Stop 04/05/18 at 17:44; Status DC Vancomycin HCl (Vanco Per Pharmacy) 1 each 1X ONCE MC ; Start 04/05/18 at 17:00 ; Stop 04/05/18 at 17:06; Status DC Morphine Sulfate (Morphine Sulfate) 5 mg 1X ONCE IV Last administered on at 18:12; Start 04/05/18 at 17:00; Stop 04/05/18 at 17:05; Status DC Vancomycin HCl 1.75 gm/Sodium Chloride 500 ml @ 250 mls/hr 1X ONCE IV Last administered on 04/05/18at 19:01; Start 04/05/18 at 17:15; Stop 04/05/18 at 19:14 ; Status DC Ondansetron HCl (Zofran) 4 mg PRN Q8HRS PRN IV NAUSEA/VOMITING Last administered on 04/05/18at 18:11; Start 04/05/18 at 17:15; Stop 04/05/18 at 18:49 ; Status DC Morphine Sulfate (Morphine Sulfate) 2 mg PRN Q2HR PRN IV PAIN; Start 04/05/18 at 17:15; Stop 04/05/18 at 18:49; Status DC Ondansetron HCl (Zofran) 4 mg PRN Q8HRS PRN IV NAUSEA/VOMITING; Start 04/05/18 at 18:45; Stop 04/06/18 at 18:44; Status DC Morphine Sulfate (Morphine Sulfate) 4 mg PRN Q2HR PRN IV PAIN Last administered on 04/05/18 23:25; Start 04/05/18 at 18:45; Stop 04/06/18 at 18:44 ; Status DC Acetaminophen/ Hydrocodone Bitart (Lortab 7.5/325) 1 tab PRN Q4HRS PRN PO PAIN MODERATE TO SEVERE Last administered on 04/06/18 00:29; Start 04/05/18 at 22:15 ; Stop 04/06/18 at 02:41; Status DC Senna/Docusate Sodium (Senna Plus) 1 tab DAILY PO Last administered on 08:12; Start 04/06/18 at 09:00 Amlodipine Besylate (Norvasc) 2.5 mg DAILY PO Last administered on 04/08/18 08: 12; Start 04/06/18 at 09:00 Citalopram Hydrobromide (CeleXA) 40 mg QHS PO Last administered on 04/07/18 21: 28; Start 04/05/18 at 22:30 Insulin Human Lispro (HumaLOG) 10 units TIDWMEALS SQ Last administered on 08:38; Start 04/06/18 at 08:00; Stop 04/08/18 at 11:33; Status DC Insulin Glargine (Lantus) 33 units QHS SQ Last administered on 04/05/18 23:25 ; Start 04/05/18 at 22:30; Stop 04/06/18 at 02:41; Status DC Polyethylene Glycol (miraLAX PACKET) 17 gm PRN DAILY PRN PO CONSTIPATION 1ST CHOICE; Start 04/06/18 at 09:00 Simvastatin (Zocor) 20 mg HS PO Last administered on 04/07/18at 21:27; Start at 22:30 Non-Formulary Medication (Warfarin Sodium (Coumadin)) 3 mg 1X WARF PO ; Start 04/06/18 at 16:00; Status UNV Warfarin Sodium (Coumadin Per Physician) 1 each PRN DAILY PRN MC SEE COMMENTS Last administered on 04/06/18at 05:33; Start 04/05/18 at 22:30; Stop 04/06/18 at 12 :57; Status DC Insulin Glargine (Lantus) 15 units QHS SQ Last administered on 04/07/18at 21:26; Start 04/06/18 at 21:00 Cephalexin HCl (Keflex) 250 mg TID PO ; Start 04/06/18 at 09:00; Stop 04/06/18 at 09:44; Status DC Cyclobenzaprine HCl (Flexeril) 10 mg PRN Q8HRS PRN PO MUSCLE SPASMS Last administered on 04/08/18at 08:12; Start 04/06/18 at 02:45 Glyburide (Diabeta) 5 mg BIDWMEALS PO Last administered on 04/08/18at 08:11; Start 04/06/18 at 08:00 Polyethylene Glycol (miraLAX PACKET) 17 gm DAILY PO ; Start 04/06/18 at 09:00 Oxycodone HCl (Roxicodone) 15 mg PRN Q3HRS PRN PO SEVERE PAIN Last administered on 04/08/18at 01:18; Start 04/06/18 at 02:45 Senna/Docusate Sodium (Senna Plus) 2 tab PRN QHS PRN PO CONSTIPATION 2ND CHOICE ; Start 04/06/18 at 02:45 Lactobacillus Rhamnosus (Culturelle) 1 cap BID PO Last administered on at 08:10; Start 04/06/18 at 09:00 Warfarin Sodium (Coumadin) 3 mg DAILY16 PO ; Start 04/06/18 at 16:00; Stop at 16:00; Status DC Insulin Human Lispro (HumaLOG) 0-9 UNITS TIDWMEALS SQ Last administered on 17:09; Start 04/06/18 at 09:30 Dextrose (Dextrose 50%-Water Syringe) 12.5 gm PRN Q15MIN PRN IV SEE COMMENTS Last administered on 04/07/18 11:03; Start 04/06/18 at 09:00 Vancomycin HCl (Vanco Per Pharmacy) 1 each PRN DAILY PRN MC SEE COMMENTS Last administered on 04/08/18 11:41; Start 04/06/18 at 09:45 Piperacillin Sod/ Tazobactam Sod 3.375 gm/Sodium Chloride 50 ml @ 100 mls/hr Q6HRS IV Last administered on 04/08/18 05:28; Start 04/06/18 at 10:00 Vancomycin HCl 1.25 gm/Sodium Chloride 250 ml @ 167 mls/hr Q18H IV Last administered on 04/08/18 01:23; Start 04/06/18 at 13:00 Vancomycin HCl (Vancomycin Trough Level) 1 each 1X ONCE MC ; Start 04/07/18 at 06:30; Stop 04/07/18 at 06:31; Status DC Warfarin Sodium (Coumadin Per Pharmacy) 1 each PRN DAILY PRN MC SEE COMMENTS Last administered on 04/08/18 11:38; Start 04/06/18 at 13:00 Warfarin Sodium (Coumadin) 4 mg 1X WARF ONCE PO Last administered on 04/06/18 16:55; Start 04/06/18 at 16:00; Stop 04/06/18 at 16:01; Status DC Multivitamins (Thera M Plus) 1 tab DAILY PO Last administered on 04/08/18 08:12 ; Start 04/06/18 at 16:00 Warfarin Sodium (Coumadin) 7.5 mg 1X WARF ONCE PO Last administered on 17:06; Start 04/07/18 at 16:00; Stop 04/07/18 at 16:01; Status DC Budesonide (Pulmicort) 0.5 mg RTBID NEB ; Start 04/08/18 at 12:00; Status Cancel Warfarin Sodium (Coumadin) 6 mg 1X WARF ONCE PO ; Start 04/08/18 at 16:00; Stop 04/08/18 at 16:01 Active Scripts Active Senna-Time S Tablet (Sennosides/Docusate Sodium) 1 Each Tablet 1 Tab PO DAILY 10 Days Polyethylene Glycol 3350 17 Gm Powd.pack 17 Gm PO PRN DAILY PRN 10 Days Hydrocodone-Apap 7.5-325 (Hydrocodone Bit/Acetaminophen) 1 Tab Tablet 1 Tab PO PRN Q4HRS PRN 14 Days Coumadin (Warfarin Sodium) 3 Mg Tablet 3 Mg PO 1X WARF 10 Days Reported Levemir (Insulin Detemir) 100 Unit/1 Ml Vial 33 Unit SQ HS Novolog (Insulin Aspart) 100 Unit/1 Ml Cartridge 10 Unit SQ TIDWMEALS Amlodipine Besylate 2.5 Mg Tablet 2.5 Mg PO DAILY Celexa (Citalopram Hydrobromide) 40 Mg Tablet 1 Tab PO HS Simvastatin 20 Mg Tablet 1 Tab PO QHS Vitals/I & O Vital Sign - Last 24 Hours 04/07/18 04/07/18 04/07/18 04/07/18 15:00 17:07 19:00 19:21 Temp 98.1 98.7 98.1 98.7 Pulse 79 76 Resp 18 16 B/P (MAP) 154/70 (98) 148/59 (88) Pulse Ox 98 98 96 98 O2 Delivery Room Air Room Air Room Air 04/07/18 04/07/18 04/08/18 04/08/18 20:00 23:00 01:18 02:18 Temp 98.0 98.0 Pulse 78 Resp 18 16 18 B/P (MAP) 148/63 (91) Pulse Ox 96 O2 Delivery Room Air Room Air Room Air Room Air 04/08/18 04/08/18 04/08/18 04/08/18 03:00 07:00 08:12 11:00 Temp 98.1 98.2 97.9 98.1 98.2 97.9 Pulse 79 80 80 87 Resp 16 18 16 B/P (MAP) 137/58 (84) 144/66 (92) 144/66 144/62 (89) Pulse Ox 92 97 98 O2 Delivery Room Air Room Air Room Air Intake and Output 04/07/18 04/07/18 04/08/18 15:00 23:00 07:00 Intake Total 355 ml 250 ml Balance 355 ml 250 ml EBENEZER OSULLIVAN MD Apr 08, 2018 12:41
[2018-04-08] MEDS ORDERED: MORPHINE SULFATE 4 MG/ML VIAL. IV ONE (14:00)
[2018-04-08 15:00] VITALS: BP 138/62
--- NOTE | 2018-04-08 15:15 | PDOC ---
PROGRESS NOTES Subjective Subjective Problems overnight: Left hand feels better, ambulating better on left hip as well Objective Vital Signs Vital Signs Date Time Temp Pulse Resp B/P (MAP) Pulse Ox O2 Delivery O2 Flow Rate FiO2 04/08/18 14:12 98 Room Air 04/08/18 11:00 97.9 87 16 144/62 (89) 97.9 Physical Exam Pin sites remain intact redness has markedly decreased she has granulation tissue forming around the area finger and thumb flexors extensors are all intact as is her distal neurovascular status Labs Laboratory Tests Test 04/06/18 16:59 04/06/18 21:03 04/07/18 06:20 04/07/18 07:18 Glucose (Fingerstick) 200 mg/dL (70-99) 134 mg/dL (70-99) 53 mg/dL (70-99) White Blood Count 4.5 x10^3/uL (4.0-11.0) Red Blood Count 2.83 x10^6/uL (3.50-5.40) Hemoglobin 8.5 g/dL (12.0-15.5) Hematocrit 25.2 % (36.0-47.0) Mean Corpuscular Volume 89 fL (79-100) Mean Corpuscular Hemoglobin 30 pg (25-35) Mean Corpuscular Hemoglobin Concent 34 g/dL (31-37) Red Cell Distribution Width 12.8 % (11.5-14.5) Platelet Count 191 x10^3/uL (140-400) Neutrophils (%) (Auto) 64 % (31-73) Lymphocytes (%) (Auto) 21 % (24-48) Monocytes (%) (Auto) 9 % (0-9) Eosinophils (%) (Auto) 5 % (0-3) Basophils (%) (Auto) 1 % (0-3) Neutrophils # (Auto) 2.9 x10^3uL (1.8-7.7) Lymphocytes # (Auto) 0.9 x10^3/uL (1.0-4.8) Monocytes # (Auto) 0.4 x10^3/uL (0.0-1.1) Eosinophils # (Auto) 0.2 x10^3/uL (0.0-0.7) Basophils # (Auto) 0.0 x10^3/uL (0.0-0.2) Prothrombin Time 14.0 SEC (11.7-14.0) Prothromb Time International Ratio 1.1 (0.8-1.1) Sodium Level 147 mmol/L (136-145) Potassium Level 3.5 mmol/L (3.5-5.1) Chloride Level 106 mmol/L (98-107) Carbon Dioxide Level 29 mmol/L (21-32) Anion Gap 12 (6-14) Blood Urea Nitrogen 15 mg/dL (7-20) Creatinine 1.0 mg/dL (0.6-1.0) Estimated GFR (Cockcroft-Gault) 54.7 BUN/Creatinine Ratio 15 (6-20) Glucose Level 61 mg/dL (70-99) Hemoglobin A1c 9.1 % (4.8-5.6) Calcium Level 8.3 mg/dL (8.5-10.1) Total Bilirubin 0.4 mg/dL (0.2-1.0) Aspartate Amino Transf (AST/SGOT) 14 U/L (15-37) Alanine Aminotransferase (ALT/SGPT) 10 U/L (14-59) Alkaline Phosphatase 112 U/L (46-116) Total Protein 5.5 g/dL (6.4-8.2) Albumin 2.4 g/dL (3.4-5.0) Albumin/Globulin Ratio 0.8 (1.0-1.7) Vancomycin Level Trough 11.4 mcg/mL (10.0-20.0) Vancomycin Last Dose Date 04/06/18 Vancomycin Last Dose Time 1300 Test 04/07/18 08:09 04/07/18 11:00 04/07/18 11:25 04/07/18 16:34 Glucose (Fingerstick) 187 mg/dL (70-99) 56 mg/dL (70-99) 146 mg/dL (70-99) 218 mg/dL (70-99) Test 04/07/18 20:36 04/08/18 06:35 04/08/18 07:27 04/08/18 11:13 Glucose (Fingerstick) 254 mg/dL (70-99) 137 mg/dL (70-99) 209 mg/dL (70-99) Prothrombin Time 14.2 SEC (11.7-14.0) Prothromb Time International Ratio 1.1 (0.8-1.1) Creatinine 1.1 mg/dL (0.6-1.0) Estimated GFR (Cockcroft-Gault) 49.0 Laboratory Tests Test 04/07/18 16:34 04/07/18 20:36 04/08/18 06:35 04/08/18 07:27 Glucose (Fingerstick) 218 mg/dL (70-99) 254 mg/dL (70-99) 137 mg/dL (70-99) Prothrombin Time 14.2 SEC (11.7-14.0) Prothromb Time International Ratio 1.1 (0.8-1.1) Creatinine 1.1 mg/dL (0.6-1.0) Estimated GFR (Cockcroft-Gault) 49.0 Test 04/08/18 11:13 Glucose (Fingerstick) 209 mg/dL (70-99) Assessment Assessment POD# [], S/P [] Plan Plan of Care I changed her dressing today and swab the area around the pin sites. Also discussed with infectious disease their plan for initial IV antibiotics transitioning to oral antibiotics until the pins are removed, likely another 2 weeks Follow-up orthopedic clinic approximately 2 weeks from her discharge for x-rays and reevaluation VIVEK CARTER MD Apr 08, 2018 15:15
[2018-04-08] MEDS ORDERED: WARFARIN 6 MG TABLET. PO ONE (16:00)
[2018-04-08 19:00] VITALS: BP 113/63
[2018-04-08] MEDS: CITALOPRAM 20 MG TABLET. PO SCH (20:59)
[2018-04-08] MEDS: SIMVASTATIN 20 MG TABLET PO SCH (20:59)
[2018-04-08] MEDS: INSULIN GLARGINE 300 UNITS/3 ML INSULN.PEN. SQ SCH (21:00)
--- NOTE | 2018-04-08 22:13 | NUR ---
Blood sugar 81. Pt. has lantus 15 units. This nurse non-administered. Dr. Kaci brooks and said it was ok to non-administer.
[2018-04-08 23:00] VITALS: BP_SYST 102; BP_SYST 131; BP_DIAS 52; BP_DIAS 58
[2018-04-09] MEDS: PIPERACILLIN/TAZOBACTAM 3.375 GM in IV NORMAL SALINE 50ML 50 ML IV SCH ×3 (00:31→11:49)
--- NOTE | 2018-04-09 01:06 | NUR ---
BRYANT Hernandez took pt. to bathroom and pt. stated she felt dizzy. David took pt.'s blood sugar and it read 225. Dr. Clemons was called and he ok'd to use humalog sliding scale protocol so pt. was given 3 units. Will recheck sugar this morning.
[2018-04-09] MEDS ORDERED: INSULIN LISPRO 300 UNITS/3 ML INSULN.PEN. SQ ONE ×2 (01:15→04:30)
[2018-04-09 02:34] VITALS: BP 131/58
[2018-04-09] MEDS: oxyCODONE IR 5 MG TABLET PO PRN ×4 (04:18→17:57)
[2018-04-09 04:59] LABS: PROTHROMBIN TIME PATIENT 13.3 SEC (11.7-14.0)
[2018-04-09 05:14] LABS: CREATININE 1.1 mg/dL (0.6-1.0)
[2018-04-09 07:00] VITALS: BP 123/49
--- NOTE | 2018-04-09 08:06 | PDOC ---
PROGRESS NOTES Chief Complaint Chief Complaint left hand fracture with ORIF and hardware, now left hand swelling and redness and pain with exudate. cellulitis, c ID following, on broad abx DM2, insulin, con tthe SSI, c hip pain, recent hip fracture from falling on ice in driveway while retrieving garbage cans History of Present Illness History of Present Illness 72yo F w/ PMHx diabetes who has had a fall and had a surgery done on 03/15/2018 with left hip fracture hemiarthroplasty and left wrist fracture pinning done. Redness and swelling and discharge a little better dressing changed by Dr. Woo 04/08 good granulation at base, she is much stronger, discussed with PT, patient had been planning on DC from [facility], she would prefer to go home with home health when abx - invanz for 2 weeks can be established. Platform walker helps her. Vitals Vitals Vital Signs Date Time Temp Pulse Resp B/P (MAP) Pulse Ox O2 Delivery O2 Flow Rate FiO2 04/09/18 05:20 18 Room Air 04/09/18 02:34 97.9 77 131/58 (82) 95 97.9 Physical Exam Physical Exam GENERAL: Propped up in bed, alert, NAD HEENT: Oral cavity clear NECK: Supple LUNGS: Clear. HEART: S1, S2 regular. ABDOMEN: Soft and nontender EXTREMITIES: No edema or cyanosis. Left hip incision bandaged, no area redness or induration. Left wrist bandaged, NEUROLOGICAL: Alert, awake and appropriate. PIV General: Alert, Cooperative, No acute distress Lungs: Clear Abdomen: Normal bowel sounds, Soft Extremities: No cyanosis, Other (left hand open wound with hardward visualized and exudate, ) Skin: No rashes Labs LABS Laboratory Tests Test 04/08/18 11:13 04/08/18 16:06 04/08/18 20:56 04/08/18 23:34 Glucose (Fingerstick) 209 mg/dL (70-99) 306 mg/dL (70-99) 81 mg/dL (70-99) 225 mg/dL (70-99) Test 04/09/18 03:18 04/09/18 04:05 04/09/18 05:42 04/09/18 07:09 Glucose (Fingerstick) 226 mg/dL (70-99) 191 mg/dL (70-99) 160 mg/dL (70-99) Prothrombin Time 13.3 SEC (11.7-14.0) Prothromb Time International Ratio 1.0 (0.8-1.1) Creatinine 1.1 mg/dL (0.6-1.0) Estimated GFR (Cockcroft-Gault) 49.0 Assessment and Plan Assessmemt and Plan Problems Medical Problems: (1) Infected surgical wound Status: Acute Comment Review of Relevant I have reviewed the following items caesar (where applicable) has been applied. Labs Laboratory Tests Test 04/07/18 08:09 04/07/18 11:00 04/07/18 11:25 04/07/18 16:34 Glucose (Fingerstick) 187 mg/dL (70-99) 56 mg/dL (70-99) 146 mg/dL (70-99) 218 mg/dL (70-99) Test 04/07/18 20:36 04/08/18 06:35 04/08/18 07:27 04/08/18 11:13 Glucose (Fingerstick) 254 mg/dL (70-99) 137 mg/dL (70-99) 209 mg/dL (70-99) Prothrombin Time 14.2 SEC (11.7-14.0) Prothromb Time International Ratio 1.1 (0.8-1.1) Creatinine 1.1 mg/dL (0.6-1.0) Estimated GFR (Cockcroft-Gault) 49.0 Test 04/08/18 16:06 04/08/18 20:56 04/08/18 23:34 04/09/18 03:18 Glucose (Fingerstick) 306 mg/dL (70-99) 81 mg/dL (70-99) 225 mg/dL (70-99) 226 mg/dL (70-99) Test 04/09/18 04:05 04/09/18 05:42 04/09/18 07:09 Prothrombin Time 13.3 SEC (11.7-14.0) Prothromb Time International Ratio 1.0 (0.8-1.1) Creatinine 1.1 mg/dL (0.6-1.0) Estimated GFR (Cockcroft-Gault) 49.0 Glucose (Fingerstick) 191 mg/dL (70-99) 160 mg/dL (70-99) Laboratory Tests Test 04/08/18 11:13 04/08/18 16:06 04/08/18 20:56 04/08/18 23:34 Glucose (Fingerstick) 209 mg/dL (70-99) 306 mg/dL (70-99) 81 mg/dL (70-99) 225 mg/dL (70-99) Test 04/09/18 03:18 04/09/18 04:05 04/09/18 05:42 04/09/18 07:09 Glucose (Fingerstick) 226 mg/dL (70-99) 191 mg/dL (70-99) 160 mg/dL (70-99) Prothrombin Time 13.3 SEC (11.7-14.0) Prothromb Time International Ratio 1.0 (0.8-1.1) Creatinine 1.1 mg/dL (0.6-1.0) Estimated GFR (Cockcroft-Gault) 49.0 Microbiology 04/06/18 Blood Culture - Preliminary, Resulted NO GROWTH AFTER 3 DAYS 04/05/18 Aerobic Culture - Preliminary, Resulted 04/05/18 Aerobic Culture Result 1 (LANA) - Preliminary, Resulted 04/05/18 Gram Stain - Final, Resulted 04/05/18 Gram Stain Result 1 (LANA) - Final, Resulted 04/05/18 Gram Stain Result 2 (LANA) - Final, Resulted Medications Current Medications Morphine Sulfate (Morphine Sulfate) 5 mg 1X ONCE IM ; Start 04/05/18 at 16:45; Stop 04/05/18 at 16:46; Status Cancel Sodium Chloride 1,000 ml @ 1,920 mls/hr Q32M IV Last administered on at 18:10; Start 04/05/18 at 17:15; Stop 04/05/18 at 18:15; Status DC Piperacillin Sod/ Tazobactam Sod 4.5 gm/Sodium Chloride 100 ml @ 200 mls/hr 1X ONCE IV Last administered on 04/05/18at 18:18; Start 04/05/18 at 17:15; Stop 04/05/18 at 17:44; Status DC Vancomycin HCl (Vanco Per Pharmacy) 1 each 1X ONCE MC ; Start 04/05/18 at 17:00 ; Stop 04/05/18 at 17:06; Status DC Morphine Sulfate (Morphine Sulfate) 5 mg 1X ONCE IV Last administered on at 18:12; Start 04/05/18 at 17:00; Stop 04/05/18 at 17:05; Status DC Vancomycin HCl 1.75 gm/Sodium Chloride 500 ml @ 250 mls/hr 1X ONCE IV Last administered on 04/05/18at 19:01; Start 04/05/18 at 17:15; Stop 04/05/18 at 19:14 ; Status DC Ondansetron HCl (Zofran) 4 mg PRN Q8HRS PRN IV NAUSEA/VOMITING Last administered on 04/05/18at 18:11; Start 04/05/18 at 17:15; Stop 04/05/18 at 18:49 ; Status DC Morphine Sulfate (Morphine Sulfate) 2 mg PRN Q2HR PRN IV PAIN; Start 04/05/18 at 17:15; Stop 04/05/18 at 18:49; Status DC Ondansetron HCl (Zofran) 4 mg PRN Q8HRS PRN IV NAUSEA/VOMITING; Start 04/05/18 at 18:45; Stop 04/06/18 at 18:44; Status DC Morphine Sulfate (Morphine Sulfate) 4 mg PRN Q2HR PRN IV PAIN Last administered on 04/05/18at 23:25; Start 04/05/18 at 18:45; Stop 04/06/18 at 18:44 ; Status DC Acetaminophen/ Hydrocodone Bitart (Lortab 7.5/325) 1 tab PRN Q4HRS PRN PO PAIN MODERATE TO SEVERE Last administered on 04/06/18at 00:29; Start 04/05/18 at 22:15 ; Stop 04/06/18 at 02:41; Status DC Senna/Docusate Sodium (Senna Plus) 1 tab DAILY PO Last administered on 08:12; Start 04/06/18 at 09:00 Amlodipine Besylate (Norvasc) 2.5 mg DAILY PO Last administered on 04/08/18 08: 12; Start 04/06/18 at 09:00 Citalopram Hydrobromide (CeleXA) 40 mg QHS PO Last administered on 04/08/18at 20: 59; Start 04/05/18 at 22:30 Insulin Human Lispro (HumaLOG) 10 units TIDWMEALS SQ Last administered on 08:38; Start 04/06/18 at 08:00; Stop 04/08/18 at 11:33; Status DC Insulin Glargine (Lantus) 33 units QHS SQ Last administered on 04/05/18 23:25 ; Start 04/05/18 at 22:30; Stop 04/06/18 at 02:41; Status DC Polyethylene Glycol (miraLAX PACKET) 17 gm PRN DAILY PRN PO CONSTIPATION 1ST CHOICE; Start 04/06/18 at 09:00 Simvastatin (Zocor) 20 mg HS PO Last administered on 04/08/18 20:59; Start at 22:30 Non-Formulary Medication (Warfarin Sodium (Coumadin)) 3 mg 1X WARF PO ; Start 04/06/18 at 16:00; Status UNV Warfarin Sodium (Coumadin Per Physician) 1 each PRN DAILY PRN MC SEE COMMENTS Last administered on 04/06/18 05:33; Start 04/05/18 at 22:30; Stop 04/06/18 at 12 :57; Status DC Insulin Glargine (Lantus) 15 units QHS SQ Last administered on 04/07/18 21:26; Start 04/06/18 at 21:00 Cephalexin HCl (Keflex) 250 mg TID PO ; Start 04/06/18 at 09:00; Stop 04/06/18 at 09:44; Status DC Cyclobenzaprine HCl (Flexeril) 10 mg PRN Q8HRS PRN PO MUSCLE SPASMS Last administered on 04/08/18 08:12; Start 04/06/18 at 02:45 Glyburide (Diabeta) 5 mg BIDWMEALS PO Last administered on 04/08/18 16:27; Start 04/06/18 at 08:00 Polyethylene Glycol (miraLAX PACKET) 17 gm DAILY PO ; Start 04/06/18 at 09:00 Oxycodone HCl (Roxicodone) 15 mg PRN Q3HRS PRN PO SEVERE PAIN Last administered on 04/09/18 04:18; Start 04/06/18 at 02:45 Senna/Docusate Sodium (Senna Plus) 2 tab PRN QHS PRN PO CONSTIPATION 2ND CHOICE ; Start 04/06/18 at 02:45 Lactobacillus Rhamnosus (Culturelle) 1 cap BID PO Last administered on 20:59; Start 04/06/18 at 09:00 Warfarin Sodium (Coumadin) 3 mg DAILY16 PO ; Start 04/06/18 at 16:00; Stop at 16:00; Status DC Insulin Human Lispro (HumaLOG) 0-9 UNITS TIDWMEALS SQ Last administered on 16:34; Start 04/06/18 at 09:30 Dextrose (Dextrose 50%-Water Syringe) 12.5 gm PRN Q15MIN PRN IV SEE COMMENTS Last administered on 04/07/18 11:03; Start 04/06/18 at 09:00 Vancomycin HCl (Vanco Per Pharmacy) 1 each PRN DAILY PRN MC SEE COMMENTS Last administered on 04/08/18 11:41; Start 04/06/18 at 09:45 Piperacillin Sod/ Tazobactam Sod 3.375 gm/Sodium Chloride 50 ml @ 100 mls/hr Q6HRS IV Last administered on 04/09/18 05:44; Start 04/06/18 at 10:00 Vancomycin HCl 1.25 gm/Sodium Chloride 250 ml @ 167 mls/hr Q18H IV Last administered on 04/08/18 19:13; Start 04/06/18 at 13:00 Vancomycin HCl (Vancomycin Trough Level) 1 each 1X ONCE MC ; Start 04/07/18 at 06:30; Stop 04/07/18 at 06:31; Status DC Warfarin Sodium (Coumadin Per Pharmacy) 1 each PRN DAILY PRN MC SEE COMMENTS Last administered on 04/08/18 11:38; Start 04/06/18 at 13:00 Warfarin Sodium (Coumadin) 4 mg 1X WARF ONCE PO Last administered on 04/06/18 16:55; Start 04/06/18 at 16:00; Stop 04/06/18 at 16:01; Status DC Multivitamins (Thera M Plus) 1 tab DAILY PO Last administered on 04/08/18 08:12 ; Start 04/06/18 at 16:00 Warfarin Sodium (Coumadin) 7.5 mg 1X WARF ONCE PO Last administered on 17:06; Start 04/07/18 at 16:00; Stop 04/07/18 at 16:01; Status DC Budesonide (Pulmicort) 0.5 mg RTBID NEB ; Start 04/08/18 at 12:00; Status Cancel Warfarin Sodium (Coumadin) 6 mg 1X WARF ONCE PO Last administered on 04/08/18at 16:28; Start 04/08/18 at 16:00; Stop 04/08/18 at 16:01; Status DC Morphine Sulfate (Morphine Sulfate) 4 mg 1X ONCE IV Last administered on at 14:12; Start 04/08/18 at 14:00; Stop 04/08/18 at 14:01; Status DC Insulin Human Lispro (HumaLOG) 3 units 1X ONCE SQ Last administered on at 01:05; Start 04/09/18 at 01:15; Stop 04/09/18 at 01:16; Status DC Insulin Human Lispro (HumaLOG) 3 units 1X ONCE SQ Last administered on at 04:16; Start 04/09/18 at 04:30; Stop 04/09/18 at 04:31; Status DC Active Scripts Active Senna-Time S Tablet (Sennosides/Docusate Sodium) 1 Each Tablet 1 Tab PO DAILY 10 Days Polyethylene Glycol 3350 17 Gm Powd.pack 17 Gm PO PRN DAILY PRN 10 Days Hydrocodone-Apap 7.5-325 (Hydrocodone Bit/Acetaminophen) 1 Tab Tablet 1 Tab PO PRN Q4HRS PRN 14 Days Coumadin (Warfarin Sodium) 3 Mg Tablet 3 Mg PO 1X WARF 10 Days Reported Levemir (Insulin Detemir) 100 Unit/1 Ml Vial 33 Unit SQ HS Novolog (Insulin Aspart) 100 Unit/1 Ml Cartridge 10 Unit SQ TIDWMEALS Amlodipine Besylate 2.5 Mg Tablet 2.5 Mg PO DAILY Celexa (Citalopram Hydrobromide) 40 Mg Tablet 1 Tab PO HS Simvastatin 20 Mg Tablet 1 Tab PO QHS Vitals/I & O Vital Sign - Last 24 Hours 04/08/18 04/08/18 04/08/18 04/08/18 08:12 08:15 11:00 13:28 Temp 97.9 97.9 Pulse 80 87 Resp 16 B/P (MAP) 144/66 144/62 (89) Pulse Ox 98 98 O2 Delivery Room Air Room Air Room Air 04/08/18 04/08/18 04/08/18 04/08/18 14:12 15:00 15:14 15:38 Temp 98.3 98.3 Pulse 83 Resp 18 B/P (MAP) 138/62 (87) Pulse Ox 98 96 98 98 O2 Delivery Room Air Room Air Room Air 04/08/18 04/08/18 04/08/18 04/08/18 19:00 20:00 21:00 23:00 Temp 97.8 97.9 97.8 97.9 Pulse 79 85 Resp 16 18 18 B/P (MAP) 113/63 (80) 102/52 (69) Pulse Ox 98 95 O2 Delivery Room Air Room Air Room Air Room Air 04/09/18 04/09/18 04/09/18 02:34 04:18 05:20 Temp 97.9 97.9 Pulse 77 Resp 18 18 18 B/P (MAP) 131/58 (82) Pulse Ox 95 O2 Delivery Room Air Room Air Room Air RIKA KHAN MD Apr 09, 2018 08:06
[2018-04-09] MEDS: MULTIVITAMIN with MINERAL TABLET. PO SCH (08:53)
[2018-04-09] MEDS: glyBURIDE 5 MG TABLET PO SCH ×2 (08:54→17:55)
[2018-04-09] MEDS: amLODIPine BESYLATE 5 MG TABLET PO SCH (08:55)
[2018-04-09] MEDS: POLYETHYLENE GLYCOL 3350 17 GM PACKET. PO SCH (08:55)
[2018-04-09] MEDS: SENNOSIDES/DOCUSATE 8.6/50MG TABLET. PO SCH (08:56)
--- NOTE | 2018-04-09 09:01 | PDOC ---
Infectious Disease Note Subjective: Subjective Pain is under control No F/C/S/N/V/D ROS: ROS Negative except for above. Vital Signs: Vital Signs Vital Signs Date Time Temp Pulse Resp B/P (MAP) Pulse Ox O2 Delivery O2 Flow Rate FiO2 04/09/18 07:00 97.7 95 18 123/49 (73) 95 Room Air 97.7 Physical Exam: PHYSICAL EXAM GENERAL: Propped up in bed, alert, NAD HEENT: Oral cavity clear NECK: Supple LUNGS: Clear. HEART: S1, S2 regular. ABDOMEN: Soft and nontender EXTREMITIES: No edema or cyanosis. Left hip incision bandaged, no area redness or induration. Left wrist bandaged, NEUROLOGICAL: Alert, awake and appropriate. PIV Medications: Inpatient Meds: Current Medications Medications (Trade) Dose Ordered Sig/Papa Start Time Stop Time Status Last Admin Dose Admin Acetaminophen/ Hydrocodone Bitart (Lortab 7.5/325) 1 tab PRN Q4HRS PRN 04/05/18 22:15 04/06/18 02:41 DC 04/06/18 00:29 1 TAB Amlodipine Besylate (Norvasc) 2.5 mg DAILY 04/06/18 09:00 04/08/18 08:12 2.5 MG Budesonide (Pulmicort) 0.5 mg RTBID 04/08/18 12:00 Cancel Cephalexin HCl (Keflex) 250 mg TID 04/06/18 09:00 04/06/18 09:44 DC Citalopram Hydrobromide (CeleXA) 40 mg QHS 04/05/18 22:30 04/08/18 20:59 40 MG Cyclobenzaprine HCl (Flexeril) 10 mg PRN Q8HRS PRN 04/06/18 02:45 04/08/18 08:12 10 MG Dextrose (Dextrose 50%-Water Syringe) 12.5 gm PRN Q15MIN PRN 04/06/18 09:00 04/07/18 11:03 12.5 GM Glyburide (Diabeta) 5 mg BIDWMEALS 04/06/18 08:00 04/08/18 16:27 5 MG Insulin Glargine (Lantus) 15 units QHS 04/06/18 21:00 04/07/18 21:26 15 UNITS Insulin Human Lispro (HumaLOG) 3 units 1X ONCE 04/09/18 04:30 04/09/18 04:31 DC 04/09/18 04:16 3 UNITS Lactobacillus Rhamnosus (Culturelle) 1 cap BID 04/06/18 09:00 04/08/18 20:59 1 CAP Morphine Sulfate (Morphine Sulfate) 4 mg 1X ONCE 04/08/18 14:00 04/08/18 14:01 DC 04/08/18 14:12 4 MG Multivitamins (Thera M Plus) 1 tab DAILY 04/06/18 16:00 04/08/18 08:12 1 TAB Non-Formulary Medication (Warfarin Sodium (Coumadin)) 3 mg 1X WARF 04/06/18 16:00 UNV Ondansetron HCl (Zofran) 4 mg PRN Q8HRS PRN 04/05/18 18:45 04/06/18 18:44 DC Oxycodone HCl (Roxicodone) 15 mg PRN Q3HRS PRN 04/06/18 02:45 04/09/18 04:18 15 MG Piperacillin Sod/ Tazobactam Sod 3.375 gm/Sodium Chloride 50 ml @ 100 mls/hr Q6HRS 04/06/18 10:00 04/09/18 05:44 100 MLS/HR Piperacillin Sod/ Tazobactam Sod 4.5 gm/Sodium Chloride 100 ml @ 200 mls/hr 1X ONCE 04/05/18 17:15 04/05/18 17:44 DC 04/05/18 18:18 200 MLS/HR Polyethylene Glycol (miraLAX PACKET) 17 gm DAILY 04/06/18 09:00 Senna/Docusate Sodium (Senna Plus) 2 tab PRN QHS PRN 04/06/18 02:45 Simvastatin (Zocor) 20 mg HS 04/05/18 22:30 04/08/18 20:59 20 MG Sodium Chloride 1,000 ml @ 1,920 mls/hr Q32M 04/05/18 17:15 04/05/18 18:15 DC 04/05/18 18:10 1,920 MLS/HR Vancomycin HCl (Vanco Per Pharmacy) 1 each PRN DAILY PRN 04/06/18 09:45 04/08/18 11:41 1 EACH Vancomycin HCl (Vancomycin Trough Level) 1 each 1X ONCE 04/07/18 06:30 04/07/18 06:31 DC Vancomycin HCl 1.25 gm/Sodium Chloride 250 ml @ 167 mls/hr Q18H 04/06/18 13:00 04/08/18 19:13 167 MLS/HR Vancomycin HCl 1.75 gm/Sodium Chloride 500 ml @ 250 mls/hr 1X ONCE 04/05/18 17:15 04/05/18 19:14 DC 04/05/18 19:01 250 MLS/HR Warfarin Sodium (Coumadin Per Pharmacy) 1 each PRN DAILY PRN 04/06/18 13:00 04/08/18 11:38 1 EACH Warfarin Sodium (Coumadin Per Physician) 1 each PRN DAILY PRN 04/05/18 22:30 04/06/18 12:57 DC 04/06/18 05:33 1 EACH Warfarin Sodium (Coumadin) 6 mg 1X WARF ONCE 04/08/18 16:00 04/08/18 16:01 DC 04/08/18 16:28 6 MG Labs: Lab Laboratory Tests Test 04/08/18 11:13 04/08/18 16:06 04/08/18 20:56 04/08/18 23:34 Glucose (Fingerstick) 209 mg/dL (70-99) 306 mg/dL (70-99) 81 mg/dL (70-99) 225 mg/dL (70-99) Test 04/09/18 03:18 04/09/18 04:05 04/09/18 05:42 04/09/18 07:09 Glucose (Fingerstick) 226 mg/dL (70-99) 191 mg/dL (70-99) 160 mg/dL (70-99) Prothrombin Time 13.3 SEC (11.7-14.0) Prothromb Time International Ratio 1.0 (0.8-1.1) Creatinine 1.1 mg/dL (0.6-1.0) Estimated GFR (Cockcroft-Gault) 49.0 Micro RUN DATE: 04/08/18 PAGE 1 RUN TIME: 0814 [facility] [address] [place] [address] Sherman Pineda M.D., Handle Sewer PATIENT: ESTEFANÍA HERNANDEZ ACCT: [id number] LOC: [address] [place] [address] U : [id number] AGE/SX: 72/F ROOM: 426 REG : 04/05/[address]: LINDA SOLITARIO MD : [id number] BED: 1 DIS : STATUS: ADM IN TLOC: SPEC #: [id number] NASIR: 04/05/18 STATUS: RES REQ #: [id number] RECD: 04/05/[address]: LILIYA MANNING APRN SOURCE: WRIST ENTR: 04/05/[address]: VIVEK CARTER MD SPDESC: LEFT ORDERED: AEROBIC CULT GS Procedure Result AEROBIC CULTURE Preliminary Preliminary report AEROBIC RES 1 Preliminary Mixed skin rusty 1+ Performed at: [address] [id number] Accounting Office Manager: BLANCA Cheatham MD, Phone: [phone] GRAM STAIN Final Final report GRAM STAIN RESULT 1 Final Comment No white blood cells seen. GRAM STAIN RESULT 2 Final No organisms seen Performed at: [address], [place] [id number] Accounting Office Manager: BLANCA Cheatham MD, Phone: [phone] Objective: Assessment: Left wrist infection with the 2 pins visible going into the bone. cults mixed rusty 04/05 pt was on keflex prior to this admission Left wrist ORIF on 03/15 Left hip ORIF/Hemiarthroplasty on 03/15 DM Plan: Plan of Care Vanc and Zosyn Trough 11.4 f/u cultures supportive care PT/OT CLIFFORD MOMIN MD Apr 09, 2018 09:01
[2018-04-09] MEDS: LACTOBACILLUS RHAMNOSUS GG 1 CAPSULE. PO SCH (09:07)
[2018-04-09] MEDS: INSULIN LISPRO 300 UNITS/3 ML INSULN.PEN. SQ SCH ×3 (09:07→18:09)
[2018-04-09 11:00] VITALS: BP 113/57
[2018-04-09] MEDS ORDERED: GLYB5TAB3 PO (11:30)
[2018-04-09] MEDS ORDERED: OXYC5TAB4 PO (11:30)
--- NOTE | 2018-04-09 11:39 | DISCH ---
DISCHARGE WITH HOME HEALTH DISCHARGE INFORMATION: Discharge Date: Apr 09, 2018 Final Diagnosis: Problems Medical Problems: (1) Infected surgical wound Status: Acute Condition on Discharge: Stable CODE STATUS: Code Status: Full HOME HEALTH: Face to Face: I certify this patient is under my care and that I, or a nurse practitioner or physician's urgent care physician assistant working with me, had a face to face encounter that meets the physician face to face encounter requirements with this patient on 04/09/18. Medical Complications: Falls Senior Care For: Assess/Skilled Observatio, Diabetic Care, Medication Management, Pain Management Physical Therapy For: Evalulation/Treatment Occupational Therapy For: Evaluation/Treatment Home Health Aide For: Self-care Pt Meets Homebound Status: Poor coordination w/ amb. POST DISCHARGE ORDERS: Activity Instructions for Disc: Activity as tolerated Weight Bearing Status after Di: Partial weight bearing DIET AFTER DISCHARGE: Regular TREATMENT/EQUIPMENT ORDERS: Adaptive Equipment Issued: Platform walker, Raised toilet seat CERTIFICATION STATEMENT: Certification Statement: Certification Statement: Based on the above finding, I certify that this patient is confined to the home and needs intermittent prison care, physical therapy and/or speech therapy, or continues to need occupational therapy.~ This patient is under my care, and I have initiated the establishment of the plan of care.~ This patient will be followed by myself or a community physician who will periodically review the plan of care. Home Meds Active Scripts Oxycodone Hcl (OXYCODONE HCL IMMED.RELEASE ) 5 Mg Tablet, 15 MG PO PRN Q6HRS PRN for SEVERE PAIN for 4 Days, #48 TAB Prov:RIKA KHAN MD 04/09/18 Glyburide (GLYBURIDE) 5 Mg Tablet, 5 MG PO BIDWMEALS for DM2 for 30 Days, #60 TAB Prov:RIKA KHAN MD 04/09/18 Sennosides/Docusate Sodium (SENNA-TIME S TABLET) 1 Each Tablet, 1 TAB PO DAILY for CONSTIPATION for 10 Days, #10 TAB Prov:LINDA SOLITARIO MD 03/19/18 Polyethylene Glycol 3350 (POLYETHYLENE GLYCOL 3350) 17 Gm Powd.pack, 17 GM PO PRN DAILY PRN for CONSTIPATION for 10 Days, #10 PKT Prov:LINDA SOLITARIO MD 03/19/18 Hydrocodone Bit/Acetaminophen (HYDROCODONE-APAP 7.5-325 ) 1 Tab Tablet, 1 TAB PO PRN Q4HRS PRN for PAIN MODERATE TO SEVERE for 14 Days, #60 TAB Prov:LINDA SOLITARIO MD 03/19/18 Warfarin Sodium (COUMADIN) 3 Mg Tablet, 3 MG PO 1X WARF for DVT PREVENTION for 10 Days, #10 TAB Prov:LINDA SOLITARIO MD 03/19/18 Reported Medications Insulin Detemir (LEVEMIR) 100 Unit/1 Ml Vial, 33 UNIT SQ HS for dm, VIAL 03/14/18 Insulin Aspart (NOVOLOG) 100 Unit/1 Ml Cartridge, 10 UNIT SQ TIDWMEALS for dm, EACH 03/14/18 Amlodipine Besylate (AMLODIPINE BESYLATE) 2.5 Mg Tablet, 2.5 MG PO DAILY for dm , TAB 03/14/18 Simvastatin (SIMVASTATIN) 20 Mg Tablet, 1 TAB PO QHS for dm, #30 TAB 5 Refills 03/14/18 Discontinued Reported Medications Citalopram Hydrobromide (CELEXA) 40 Mg Tablet, 1 TAB PO HS for depression, #30 TAB 1 Refill 03/14/18 RIKA KHAN MD Apr 09, 2018 11:39
[2018-04-09] MEDS ORDERED: ERTA1VIA IJ (12:54)
[2018-04-09] MEDS ORDERED: ERTAPENEM 1GM IVPB (GENERIC) 50 ML IV ONE (13:00)
--- NOTE | 2018-04-09 13:38 | NUR ---
COURTNEY following for discharge planning. Discussed with RN. Pt requiring a platform walker, Invanz home IV abx and home health. COURTNEY met with pt to discuss agencies to have services through, pt did not have a preference as to which agency just wanting an agency who takes her insurance. COURTNEY faxed platform walker referral to [facility] ph: [phone], fax: [phone]. IV abx referral faxed to [facility] ph: [phone], fax: [phone]. Home health referral sent to [facility] ph: [phone], fax: [phone]. [facility] will contact COURTNEY when they have determined if they can provide a platform walker. [facility] is checking benefits on pt's insurance. COURTNEY will continue to follow. Addendum: 04/09/18 at 1350 by LAURO VALDEZ Pt discharging to her daughter's home [address], [place], [address]. RN notified.
--- NOTE | 2018-04-09 14:30 | NUR ---
Pharmacy Warfarin Dosing Note S:Pharmacy consulted to assist with anticoagulation therapy started 03/15/18 with target INR: 1.6 - 2.5 O:ESTEFANÍA HERNANDEZ is a 72 year old F with Hip Fracture femur fracture LABS: Last INR: 1.1 Last HGB: 8.5 Last HCT: 25.2 Last PLT: 191 Last dose of 6 mg given on 04/08/18 at 1706 Previous Regimen: 3 mg/day Vitamin K given: N Drug Interaction Changes: New Interacting Drug Ongoing Drug Interactions: ZOSYN,CELEXA A:INR of 1.1 is below desired range. Target range for this patient is: 1.6 - 2.5 P: Warfarin dose: 6 mg Today at 1600 Bridge Therapy: None Next INR due TOMORROW. Pharmacy anticoagulation service will continue to follow. AMEENA ANDREA [facility], 04/09/18 [id number]
[2018-04-09 15:00] VITALS: BP 129/59
--- NOTE | 2018-04-09 15:35 | NUR ---
SW following. Pt will be responsible for $165 for Invanz home infusion, pt is agreeable. Bernabe from [facility] will come around 1600 to teach pt and pt's family. [facility] has accepted pt. COURTNEY left message for Marlena at [facility] to determine whether they can provide the platform walker for pt. COURTNEY will continue to follow.
[2018-04-09] MEDS ORDERED: WARFARIN 6 MG TABLET. PO ONE (16:00)
--- NOTE | 2018-04-09 16:12 | PDOC3 ---
Discharge Summary Visit Information Date of Admission: Apr 05, 2018 Date of Discharge: Apr 09, 2018 Admitting Diagnosis: Left hand infection Final Diagnosis Problems Medical Problems: (1) Infected surgical wound Status: Acute Brief Hospital Course Allergies Allergies Coded Allergies Type Severity Reaction Last Updated Verified latex Allergy Intermediate 03/17/18 Yes Vital Signs Vital Signs Date Time Temp Pulse Resp B/P (MAP) Pulse Ox O2 Delivery O2 Flow Rate FiO2 04/09/18 15:11 96 Room Air 04/09/18 15:00 98.0 78 18 129/59 (82) 98.0 Lab Results Laboratory Tests Test 04/07/18 16:34 04/07/18 20:36 04/08/18 06:35 04/08/18 07:27 Glucose (Fingerstick) 218 mg/dL (70-99) 254 mg/dL (70-99) 137 mg/dL (70-99) Prothrombin Time 14.2 SEC (11.7-14.0) Prothromb Time International Ratio 1.1 (0.8-1.1) Creatinine 1.1 mg/dL (0.6-1.0) Estimated GFR (Cockcroft-Gault) 49.0 Test 04/08/18 11:13 04/08/18 16:06 04/08/18 20:56 04/08/18 23:34 Glucose (Fingerstick) 209 mg/dL (70-99) 306 mg/dL (70-99) 81 mg/dL (70-99) 225 mg/dL (70-99) Test 04/09/18 03:18 04/09/18 04:05 04/09/18 05:42 04/09/18 07:09 Glucose (Fingerstick) 226 mg/dL (70-99) 191 mg/dL (70-99) 160 mg/dL (70-99) Prothrombin Time 13.3 SEC (11.7-14.0) Prothromb Time International Ratio 1.0 (0.8-1.1) Creatinine 1.1 mg/dL (0.6-1.0) Estimated GFR (Cockcroft-Gault) 49.0 Test 04/09/18 11:38 Glucose (Fingerstick) 191 mg/dL (70-99) Laboratory Tests Test 04/08/18 20:56 04/08/18 23:34 04/09/18 03:18 04/09/18 04:05 Glucose (Fingerstick) 81 mg/dL (70-99) 225 mg/dL (70-99) 226 mg/dL (70-99) Prothrombin Time 13.3 SEC (11.7-14.0) Prothromb Time International Ratio 1.0 (0.8-1.1) Creatinine 1.1 mg/dL (0.6-1.0) Estimated GFR (Cockcroft-Gault) 49.0 Test 04/09/18 05:42 04/09/18 07:09 04/09/18 11:38 Glucose (Fingerstick) 191 mg/dL (70-99) 160 mg/dL (70-99) 191 mg/dL (70-99) Brief Hospital Course 72yo F w/ PMHx diabetes who has had a fall and had a surgery done on 03/15/2018 with left hip fracture hemiarthroplasty and left wrist fracture pinning done. Admitted with redness and swelling of left hand, dressing changed by Dr. Woo 3/ good granulation at base, seen by ID and started on vancomycin and zosyn, however, based on initial negative cultures (was on keflex prior to culture draw) but visible pins going into bone she was placed on invanz for bone coverage until pins can be removed and she is much stronger, discussed with PT, patient had been planning on DC from SNU but she would prefer to go home with home health when invanz for 2 weeks can be established. Platform walker helps her and she will be discharged with this to aid in her recovery to offload pressure from her left hand Greater than 30 minutes spent on discharge including coordination of outpatient antibiotic infusions. Discharge Information Condition at Discharge: Improved Follow Up: Weeks (2) Disposition/Orders: D/C to Home w/ HH Scheduled Amlodipine Besylate (Amlodipine Besylate) 2.5 Mg Tablet, 2.5 MG PO DAILY for dm, (Reported) Entered as Reported by: FEROZ CALVIN on 03/14/182048 Last Action: Converted on 04/05/182211 by DUNG MUÑOZ Ertapenem Sodium (Invanz) 1 Gm Vial, 1 GM IJ DAILY for cellulitis for 14 Days, # 14 Prescribed by: RIKA KHAN MD on 3/4/19 1254 Glyburide (Glyburide) 5 Mg Tablet, 5 MG PO BIDWMEALS for DM2 for 30 Days, #60 Prescribed by: RIKA KHAN MD on 04/09/181129 Insulin Aspart (Novolog) 100 Unit/1 Ml Cartridge, 10 UNIT SQ TIDWMEALS for dm, ( Reported) Entered as Reported by: FEROZ CALVIN on 03/14/182048 Last Action: Converted on 04/05/182211 by DUNG MUÑOZ Insulin Detemir (Levemir) 100 Unit/1 Ml Vial, 33 UNIT SQ HS for dm, (Reported) Entered as Reported by: FEROZ CALVIN on 03/14/182048 Last Action: Converted on 04/05/182211 by DUNG MUÑOZ Sennosides/Docusate Sodium (Senna-Time S Tablet) 1 Each Tablet, 1 TAB PO DAILY for CONSTIPATION for 10 Days, #10 Prescribed by: LINDA SOLITARIO MD on 03/19/181442 Last Action: Continued on 04/05/182211 by DUNG MUÑOZ Simvastatin (Simvastatin) 20 Mg Tablet, 1 TAB PO QHS for dm, #30 Ref 5 (Reported ) Entered as Reported by: FEROZ CALVIN on 03/14/182048 Last Action: Converted on 04/05/182211 by DUNG MUÑOZ Warfarin Sodium (Coumadin) 3 Mg Tablet, 3 MG PO 1X WARF for DVT PREVENTION for 10 Days, #10 Prescribed by: LINDA SOLITARIO MD on 03/19/181442 Last Action: Converted on 04/05/182211 by DUNG MUÑOZ Scheduled PRN Hydrocodone Bit/Acetaminophen (Hydrocodone-Apap 7.5-325 ) 1 Tab Tablet, 1 TAB PO PRN Q4HRS PRN for PAIN MODERATE TO SEVERE for 14 Days, #60 Prescribed by: LINDA SOLITARIO MD on 03/19/181442 Last Action: Continued on 04/05/182211 by DUNG MUÑOZ Oxycodone Hcl (Oxycodone Hcl Immed.release ) 5 Mg Tablet, 15 MG PO PRN Q6HRS PRN for SEVERE PAIN for 4 Days, #48 Prescribed by: RIKA KHAN MD on 04/09/18 1130 Polyethylene Glycol 3350 (Polyethylene Glycol 3350) 17 Gm Powd.pack, 17 GM PO PRN DAILY PRN for CONSTIPATION for 10 Days, #10 Prescribed by: LINDA SOLITARIO MD on 03/19/18 1443 Last Action: Converted on 04/05/182211 by DUNG MUÑOZ Discontinued Medications Citalopram Hydrobromide (Celexa) 40 Mg Tablet, 1 TAB PO HS for depression, #30 Ref 1 (Reported) Entered as Reported by: FEROZ CALVIN on 03/14/182048 Last Action: Converted on 04/05/182211 by RIKA WEAVER MD Apr 09, 2018 16:12
--- NOTE | 2018-04-09 16:12 | NUR ---
SW following. Discussed RN. COURTNEY phoned [facility], who advised they have a platform walker and take pt's insurance. COURTNEY faxed walker referral to [facility] (ph: [phone], fax: [phone]). COURTNEY advised RN of the change of provider and gave phone number for RN to contact if needed. COURTNEY will continue to follow.
--- NOTE | 2018-04-09 18:10 | NUR ---
PRE-PICC INSERTION NOTE Allergies and reactions LATEX INR 1.0 BUN 15 Cr 1.1 Platelets 191 Blood culture done YES blood culture results NEG Order Verified YES Consent signed YES Previous PICC placement NO Past Medical/Surgical history and current diagnosis reviewed YES Patient Medical /Surgical History Related to PICC line placement Cancer Chemotherapy Diabetes Infectious Disease consult Mastectomy LEFT arm Septicemia/Bacteremia Special considerations for PICC line placement Infections PICC placement indication lobsterman antibiotic usage, name of PICC Nurse JEANINE REYNOSO RN
--- NOTE | 2018-04-09 18:14 | NUR ---
PICC INSERTION NOTE Procedure: Following complete explanation of the PICC procedure including the indications, risks, and potential complications, informed consent was obtained. The possibility for infection was discussed along with signs, symptoms, and prevention. All the [PATIENT AND FAMILY] questions were answered. Written and verbal patient education was provided. Hand hygiene performed. Standardized central line checklist was utilized. The patient was placed in the supine position, the RIGHT arm was prepped with chlorhexidine and patient draped with maximum sterile barrier. [0.5] mL 1% lidocaine was infiltrated into the skin to provide local anesthesia. A thorough assessment of [RIGHT] upper extremity completed. Using real-time ultrasound guidance and standardized micro puncture set, the [RIGHT BASILIC] vein was punctured and a peel away sheath was placed using the modified Seldinger technique. A tip location device was used to ensure adequate catheter placement. The catheter was secured using a securement device and an antimicrobial patch was applied directly on the insertion site followed by a transparent dressing. All ports withdraw blood and flush without resistance. Patient tolerated the procedure without apparent complication(s). [4 TURKS AND [place] SINGLE] Lumen Power PICC placement successful and uncomplicated. Placement verified by EKG tip confirmation system and/or chest x-ray. Tip located in the [SVC] Complications: [NONE]
--- NOTE | 2018-04-09 18:33 | NUR ---
Pt was discharged to home with at 1815 today in stable condition with all personal belongings after reviewing all pertinent information including but not limited to education, medications, follow up and at home care. Pt was given the following instructions: 2 weeks of Ertapenem 1 gm IV, final duration on clinical response Weekly labs CBC/Creat/BUN/LFT;fax results to Follow up with in 2 weeks in ID Clinic ph: Follow-up with approximately 2 weeks from discharge for x-rays and reevaluation ph: [facility] to deliver platform walker on 04/10, ph: [facility] ph: [phone] [facility] ph: [phone] After pt's PICC line was placed without any complications, pt was escorted via WC and accompanied by staff and family to the main exit where her daughter in law drove her home.
[2018-04-23] MEDS ORDERED: WARF4TAB64 PO (15:40)
[2018-04-23] MEDS ORDERED: CITA40TA5 PO (15:40)
== END 2018-04-09 18:15 | disposition home health service (06) | DRG 862 ==
LOC: ER 13:55 → 4 NORTH 16:18
PROVIDERS: ADMIT Family Medicine; ATTEND Family Medicine
PROC: 02HV33Z Insertion of Infusion Device into Superior Vena Cava, Percutaneous Approach (ICD-10-PCS; principal; 2018-04-09)
PROC: B548ZZA Ultrasonography of Superior Vena Cava, Guidance (ICD-10-PCS; 2018-04-09)
DX: T81.49XA Infection following a procedure, other surgical site, initial encounter (principal); N17.0 Acute kidney failure with tubular necrosis; L03.114 Cellulitis of left upper limb; E11.9 Type 2 diabetes mellitus without complications; E78.00 Pure hypercholesterolemia, unspecified; I10 Essential (primary) hypertension; Z96.649 Presence of unspecified artificial hip joint; Y83.8 Other surgical procedures as the cause of abnormal reaction of the patient, or of later complication, without mention of misadventure at the time of the procedure; Y92.89 Other specified places as the place of occurrence of the external cause; Z90.12 Acquired absence of left breast and nipple; Z79.899 Other long term (current) drug therapy; Z91.81 History of falling; Z91.040 Latex allergy status; Z83.3 Family history of diabetes mellitus
CPT/HCPCS: 36415; 36569; 80053; 80202; 82565; 82962; 83036; 83605; 84145; 85025; 85610; 87040; 87070; 96365; 96367; 96375; J1335; J1815; J2270; J2405; J2543; J3370; J7030; J7040; J7042; J7050; 97116; 97530; 97535; 99285-25

== ENCOUNTER 2018-04-24 08:55 | Day surgery (SDC) | payer OTHER ==
[~2018-04-24 08:55] MED LIST changes: +CITA40TA5 PO; +ERTA1VIA IJ; +GLYB5TAB3 PO; +HYDROmorphone 2 MG/ML VIAL IV PRN; +IV RINGERS,LACTATED 1000ML 1,000 ML IV SCH; +LIDOCAINE 1% PF 2 ML VIAL. ID PRN; +MORPHINE SULFATE 2 MG/ML VIAL. IV PRN; +ONDANSETRON PF 4 MG/2 ML VIAL. IV PRN; +OXYC5TAB4 PO; +PROCHLORPERAZINE 10 MG/2 ML VIAL. IV PRN; +WARF4TAB64 PO; +fentaNYL PF VIAL 100 MCG/2 ML VIAL IV PRN
[2018-04-24] MEDS ORDERED: PROPOFOL 20 ML IV ONE (09:58)
[2018-04-24] MEDS ORDERED: ONDANSETRON PF 4 MG/2 ML VIAL. ONE (09:58)
[2018-04-24] MEDS ORDERED: fentaNYL PF VIAL 100 MCG/2 ML VIAL ONE ×2 (09:58→13:15)
[2018-04-24] MEDS ORDERED: LIDOCAINE 2% PF 5 ML VIAL. ONE (09:58)
[2018-04-24] MEDS ORDERED: DEXAMETHASONE SOD PHOS 20 MG/5 ML VIAL. ONE (09:58)
[2018-04-24] MEDS ORDERED: PROCHLORPERAZINE 10 MG/2 ML VIAL. IV PRN (11:00)
[2018-04-24] MEDS ORDERED: MORPHINE SULFATE 2 MG/ML VIAL. IV PRN (11:00)
[2018-04-24] MEDS ORDERED: IV RINGERS,LACTATED 1000ML 1,000 ML IV SCH (11:00)
[2018-04-24] MEDS ORDERED: LIDOCAINE 1% PF 2 ML VIAL. ID PRN (11:00)
[2018-04-24] MEDS ORDERED: fentaNYL PF VIAL 100 MCG/2 ML VIAL IV PRN ×2 (11:00)
[2018-04-24] MEDS ORDERED: ONDANSETRON PF 4 MG/2 ML VIAL. IV PRN (11:00)
[2018-04-24] MEDS ORDERED: HYDROmorphone 2 MG/ML VIAL IV PRN (11:00)
[2018-04-24] MEDS ORDERED: ePHEDrine PF IN SALINE 50 MG/10 ML SYRINGE. IV ONE (12:29)
--- NOTE | 2018-04-24 13:01 | DISCH ---
DISCHARGE INSTRUCTIONS Condition on Discharge Condition on Discharge: Stable Activity After Discharge Activity Instructions for Disc: Activity as tolerated Lifting Instructions after Dis: No heavy lifting, No pulling or pushing Exercise Instruction after Dis: Exercise per therapy (full finger motion and grasp allowed may do some strengthening grasping exercises) Weight Bearing Status after Di: As tolerated (May use hand for support on walker) Diet after Discharge Diet after Discharge: Diabetic No Calorie Level Wound Incision Care Wound/Incision Care: Do not change dressing Contacting the DRJitendra after DC Call your doctor for: Concerns you may have Follow-Up Follow up with: Dr. Woo 10-14 days Treatment/Equipment after DC Adaptive Equipment Issued: VIVEK Casey MD Apr 24, 2018 13:01
[2018-04-24] MEDS ORDERED: INSULIN LISPRO 100 UNIT/ML 3ML VIAL. SQ PRN (13:15)
[2018-04-24 14:25] VITALS: BP 168/66
--- NOTE | 2018-04-24 17:49 | PDOC4 ---
Operative Note Operative Note Date of surgery: 04/24/2018 Preoperative diagnosis: Left wrist wound following closed reduction and percutaneous pinning of a distal radius fracture Postoperative diagnosis: Same Operative procedure: Percutaneous pin removal 2 left wrist with debridement and wound closure proximally 11 cm Surgeon: Amna Anesthesia: Gen. Estimated blood loss: 10 mL Complications: None Operative indications: Latoya is a 72-year-old female that underwent left hip hemiarthroplasty and closed reduction percutaneous pinning of a left distal radius fracture. Unfortunately during her rehabilitation process the protective Miriam balls from the pins made contact with the skin and opened up a wound when her pins were driven into the wrist during the rehabilitation process. She was initially evaluated in clinic and wound care carried out she was started on some antibiotics due to some subsequent redness which subsequently resolved her wrist fracture has gone on to heal well now about 6 weeks postoperatively but she remains with percutaneous pins in place and a longitudinal wound from the previous episode. I had gone over with her preoperatively my concern with her diabetes and other medical conditions of slowed healing and while we could remove the pins even in clinic I think the wound is unlikely to heal very well by secondary intention. Likewise it would not be prudent to sew the area up without significant debridement in operative setting due to the risk of infection. I therefore recommended pin removal debridement of the area and secondary closure of the wound following the debridement. All her questions were answered about the rationale for the procedure and she wishes to proceed with surgical evaluation and treatment. Operative text: Patient was identified procedure verified patient placed in the supine position on the operating table. After adequate amounts of general anesthesia were administered the left upper extremity was prepped and draped in standard sterile fashion with an upper arm tourniquet that was not inflated. After timeout was performed patient procedure identified and verified pins were first removed. There was no evidence of any gross infection or purulent drainage with removal. The radial wrist wound was about 11 cm in longitudinal dimension and thorough debridement of skin subcutaneous tissue and some underlying fascia was carried out bleeding points controlled by electrocautery thorough irrigation carried out normal saline solution and bulb syringe and closure of the area was accomplished with nylon suture in a vertical mattress and simple fashion. Excellent skin apposition was noted sterile dressings were applied patient was returned to recovery room in stable condition having tolerated procedure well VIVEK CARTER MD Apr 24, 2018 17:49
== END 2018-04-24 14:25 | disposition home or self-care (01) ==
LOC: SURG 08:55
PROVIDERS: ATTEND Orthopaedic Surgery
DX: T81.89XA Other complications of procedures, not elsewhere classified, initial encounter (principal); E11.9 Type 2 diabetes mellitus without complications; Z91.040 Latex allergy status; Z96.642 Presence of left artificial hip joint; Z98.890 Other specified postprocedural states; Z87.891 Personal history of nicotine dependence; Z72.89 Other problems related to lifestyle; Z79.84 Long term (current) use of oral hypoglycemic drugs; Z79.899 Other long term (current) drug therapy; Y83.8 Other surgical procedures as the cause of abnormal reaction of the patient, or of later complication, without mention of misadventure at the time of the procedure; Y92.89 Other specified places as the place of occurrence of the external cause
CPT/HCPCS: 20680; 82962; A7015; J0171; J1100; J2001; J2405; J2704; J3010; J7120

== ENCOUNTER → 2018-05-18 | Outpatient (CLI) | payer OTHER ==
[2018-04-24 14:25] VITALS: BP 168/66
[~2018-05-18] MED LIST changes: -HYDROmorphone 2 MG/ML VIAL IV PRN; -IV RINGERS,LACTATED 1000ML 1,000 ML IV SCH; -LIDOCAINE 1% PF 2 ML VIAL. ID PRN; -MORPHINE SULFATE 2 MG/ML VIAL. IV PRN; -ONDANSETRON PF 4 MG/2 ML VIAL. IV PRN; -PROCHLORPERAZINE 10 MG/2 ML VIAL. IV PRN; -fentaNYL PF VIAL 100 MCG/2 ML VIAL IV PRN
--- NOTE | 2018-05-18 18:04 | KCIC ---
MRI of the lumbar spine without contrast 05/18/2018 CLINICAL HISTORY: Low back pain which radiates down the left leg. TECHNIQUE: Unenhanced T1-weighted and T2-weighted sagittal and axial and inversion recovery sagittal images the lumbar spine were obtained. FINDINGS: Minimal S-shaped curvature of the thoracolumbar spine is seen. Degenerative signal changes are seen involving the L2-3, L3-4, L4-5 and L5-S1 discs. Degenerative signal changes are seen within the marrow surrounding these discs. A 8 mm hemangioma is seen involving the S1 vertebral body. The conus medullaris is within normal limits in morphology, position, and signal characteristics. The L1-2 disc space is within normal limits. At the L2-3 disc space there is a mild to moderate generalized disc bulge. This is eccentric to the left. Superimposed on this disc bulge is a left lateral focal disc protrusion. This measures 5 mm in AP diameter. Degenerative changes are seen involving the facet joints bilaterally. There is mild ligamentum flavum hypertrophy bilaterally. These findings when combined do not result in significant central spinal canal stenosis. No neural foraminal stenosis is seen. At the L3-4 disc space there is a moderate generalized disc bulge. This is eccentric to the left. Degenerative changes are seen involving the facet joints bilaterally. There is moderate ligamentum flavum hypertrophy bilaterally. There are small facet joint effusions bilaterally. These findings when combined result in mild to moderate left greater than right central spinal canal stenosis. Mild left neural foraminal stenosis is seen. The right neural foramen is patent. At the L4-5 disc space is a mild to moderate generalized disc bulge. This is eccentric to the right. Degenerative changes are seen involving the facet joints bilaterally. There are small facet joint effusions. There is moderate ligamentum flavum hypertrophy. These findings result in mild central spinal canal stenosis. No neural foraminal stenosis is seen. At the L5-S1 disc space there is a mild generalized disc bulge. Degenerative changes are seen involving the facet joints bilaterally. There is moderate ligamentum flavum hypertrophy bilaterally. These findings when combined do not result in significant central spinal canal or neural foraminal stenosis. IMPRESSION: The changes of degenerative disc disease are seen throughout the lumbar spine. These findings result in mild to moderate left greater than right central spinal canal stenosis at L3-4 and mild central spinal canal stenosis at L4-5. Mild left neural foraminal stenosis is seen at L3-4. Electronically signed by: Godfrey Brown MD (05/18/2018 6:01 PM) [id number]
== END | disposition home or self-care (01) ==
LOC: KCIC MRI 15:27
PROVIDERS: ATTEND Orthopaedic Surgery
DX: M51.36 Other intervertebral disc degeneration, lumbar region (principal); M48.061 Spinal stenosis, lumbar region without neurogenic claudication; M25.48 Effusion, other site; M51.26 Other intervertebral disc displacement, lumbar region; D18.09 Hemangioma of other sites
CPT/HCPCS: 72148